=== PATIENT | female | born 1960 | race Caucasian/White ===

== ENCOUNTER 2016-09-12 15:57 | Inpatient (IN) | payer MEDICARE, MEDICAID ==
[~2016-09-12] VITALS: Ht 162.6 cm; Wt 50.3 kg
[~2016-09-12 15:57] MED LIST: ASCO500C6 PO; BACL20TA PO; BUPR150T12 PO; CEPH500T PO; CHOL5000 PO; DIME240C2 PO; FLUC150T48 PO; FLUT16SP NASAL; GABA-502 PO; LEVO500T16 PO; METH20TA35 PO; NAPR550T44 PO; OMEP20CA11 PO; OXYC-465 PO; SENN8.6C6 PO; VENL75TA87 PO; Vitamin A PO; marijuana INHALATION
[2016-09-12 18:14] VITALS: BP 128/61; PULSE 105; RESP 17; O2SAT 94
[2016-09-12] MEDS ORDERED: Alum-Mag Hydrox-Simeth 30 mL Suspension PO PRN (19:50)
[2016-09-12] MEDS ORDERED: Ondansetron 2 mg/mL 2 mL Inj IVPUSH PRN (19:50)
[2016-09-12] MEDS ORDERED: Polyethylene Glycol (PEG) 17 Gm Powder PO PRN (19:50)
--- NOTE | 2016-09-12 19:55 | NUR ---
Transfer to [facility] Pt. transferred to [facility] at 1800 from [facility] via EMS. Report received from [facility] RN. prior to transfer. Pt. appears comfortable and does not appear to be in any pain. Non-verbal, opens eyes with verbal stimulation. Pts. significant other present. notified of pt. arrival. Pt. has suprapubic catheter draining pale urine. New dressing and bag per [facility] RN.
[2016-09-12 20:26] LABS: BASOPHILS % (AUTO) 0.1 % (0-3); EOSINOPHILS % (AUTO) 0 % (0-5); MONOCYTES % (AUTO) 2.7 % (4-12); Mean Corpuscular Hemoglobin 25.3 pg (27.0-35.0); Mean Corpuscular Volume 87.4 fL (81-100); NEUTROPHILS % (AUTO) 94.2 % (40-74); Platelet Count 261 bil/L (150-400)
[2016-09-12] MEDS ORDERED: FERR-83 PO (20:26)
[2016-09-12] MEDS ORDERED: IBUP-1827 PO (20:26)
[2016-09-12] MEDS ORDERED: BACL20TA PO ×2 (20:26)
[2016-09-12] MEDS ORDERED: VENL75TA3 PO ×2 (20:26)
[2016-09-12] MEDS ORDERED: CRAN1TAB5 PO (20:26)
[2016-09-12] MEDS ORDERED: METH20TA33 PO (20:26)
[2016-09-12] MEDS ORDERED: DOCU250C2 PO (20:26)
[2016-09-12] MEDS ORDERED: SENN-133 PO (20:27)
[2016-09-12 20:30] VITALS: BP 124/60; PULSE 123; RESP 18; O2SAT 98
[2016-09-12] MEDS: Vancomycin Dose per Pharmacist XX SCH (20:35)
[2016-09-12] MEDS ORDERED: 0.9% Sodium Chloride 1,000 ML IV ONE (20:35)
--- NOTE | 2016-09-12 20:59 | PCM.HPMED ---
Subjective Date of Service Sep 12, 2016 Primary Provider: Admitting Physician: Ashley Villafana DO Primary Care Physician: Dyan Gifford PA-C Attending Physician: Ashley Villafana DO Chief Complaint: Lethargy UTI Hydronephrosis Renal lithiasis History of Present Illness: Patient is a 56-year-old woman with primary progressive multiple sclerosis, suprapubic catheter, and consistently reoccurring urinary tract infection presented to [facility] after being found to be more lethargic this morning by her caregiver. Caregiver(who is also the boyfriend/DPOAE) is present and is the primary historian. He states that last night she did not complain of any pain, or discomfort, and this morning when she woke up she was not talking and was very weak, and was laying in a puddle of clear fluid, but the insertion point of the suprapubic catheter with its dry and intact. This is consistent with previous urinary tract infections requiring hospitalization and IV antibiotics. Her urologist is Dr. Stinson at [facility] neurology. In the emergency department at [facility] was also noted that she had some pain and firmness in regard to her abdomen. Per [facility] ER report, vitals on presentation 130/62, heart rate 96, respirations 19 temperature 36.6 and satting 98% on room air. White blood cell count 23.6, 93% neutrophils,, hemoglobin 11.6, platelets 359. Manual differential: 2+ anisocytosis, macrocytosis, hypochromasia, giant platelets. Sodium 140, potassium 4.5, chloride 103, bicarbonate 29, BUN 30, creatinine 1.0 , glucose 125, normal bilirubin and liver enzymes. Lactic acid was 1.6. Coagulation studies were normal. CT abdomen and pelvis: Showed mild to moderate hydronephrosis of the right kidney secondary to a distal ureter stone is 44 mm in transverse dimension. ( See diagnostic studies her full impression) Chest x-ray: "Segmental atelectasis in the right lung base." CT head without contrast showed no acute intracranial abnormality. Mild atrophic changes were noted Urine was sent for culture, urinalysis yellow, specific gravity 1.02, pH 8.5, leukocyte esterase 3+, nitrite positive, 2+ protein, 2+ blood, negative ketones , negative glucose, over 100 white blood cells per high-power field, 6-9 red blood cells, 4+ bacteria seen, few squamous epithelial cells. According to documentation blood cultures were ordered before administration of antibiotics, results pending. Review of Systems: Unable to obtain ROS due to patient's inability to communicate. Caregiver says she was not complaining of any pain prior to this morning. Allergies Coded Allergies: No Known Allergies (Unverified Allergy, Unknown, 09/12/16) Home Medications Baclofen Bupropion Carboxymethylcellulose glycerin Dimethyl fumarate Duloxetine Methylphenidate Nasonex Anaprox Omeprazole Oxycodone acetaminophen 53 25 Prednisolone acetate Deltasone Senokot Flomax Valtrex Effexor PMH Multiple sclerosis, primary progressing type Depression Chronic constipation Chronic low back pain Retinitis Iritis History of choking Allergic rhinitis Surgical History Left shoulder replacement Suprapubic catheter placement Family History Only available from the caregiver, Mother "heart problems" diabetes Father passed of old age, age unknown. Has 3 brothers who have passed, one of them was secondary to fulminant AIDS Social History Occupation: disabled Hx Alcohol Use: Yes ("very little, once a month or less") Hx Substance Use: Yes (marijuana, medical, "as much as she can") Smoking Status: Former Smoker (quit 6 years ago, half pack per day) Living Arrangement: with Family (with her boyfriend, who is also her DPOAE) Exam Vital Signs Vital Sign - Last Date Time Temp Pulse Resp B/P Pulse Ox O2 Delivery O2 Flow Rate FiO2 09/12/16 18:14 37.7 105 17 128/61 94 Room Air Exam General: Laying in bed, mildly uncomfortable, appears tired. Arousable, but unable to speak. HEENT: Normocephalic, atraumatic, poor dentition, mucous membranes dry, Cardiovascular: Tachycardia , no clicks murmurs rubs, peripheral pulses 2/4 equal bilaterally Pulmonary: Clear to auscultation bilaterally, no W/R/R. Abdominal: Patient does not express pain or discomfort with palpation, abdomen feels firm, suprapubic catheter is in place, no erythema, purulence, or urinary leakage is present around insertion site. Bowel sounds present 4, no hepatosplenomegaly appreciated. Extremities: No edema appreciated. No tenderness, asymmetry. Neuro: Neurologically difficult to assess secondary to lethargic state and neurologic disease. MSK: Right arm is hyperflexed with contracture, painful with passive manipulation. Lymphatics: Unable to appreciate cervical or axillary or inguinal lymph nodes. Psych: Patient responds to commands, movements are slow and deliberate. Lab and Diagnostics Labs Please see history of present illness Result Diagram: 09/12/162022 Microbiology Urine and blood cultures taken at [facility], results pending X-Rays, CTs and MRIs CT abdominal pelvis with contrast 09/12/2016 1408 Impression: #1 mild to moderate hydronephrosis of the right kidney secondary to a distal ureter stone 44 mm in transverse dimension and a right trigone stone 10 mm in length and 3-4 mm in dimension. #2 in the right kidney there are numerous for a 5 mm (4-5mm) stones throughout the kidney with nonobstructing. Left kidney is normal in appearance. #3 small right pleural effusion with question of minimal infiltrate at the right lung base. #4 small to moderate sized hiatal hernia. Lobo catheter into the bladder. Dictated by Roberth Anaya M.D. on 09/12 2016 at 2:05 PM. Portable chest x-ray 1 view taken 09/12/2016 11:24 AM Impression Subsegmental atelectasis is present. This is at the right lung base. Lungs are otherwise clear. Dictated by Roberth Anaya M.D. on 09/12/2016 11:[address] without contrast 09/12/2016, 10:53AM Impression There is no acute intracranial abnormality found. Mild atrophic changes are present. dictated by Roberth Anaya M.D. on 09/12/2016 at 10:53 AM Assessment & Plan 56-year-old with multiple sclerosis, suprapubic catheter and recurrent history of UTIs requiring hospitalization and IV antibiotics found to have hydronephrosis, renal lithiasis, elevated white count, elevated heart rate consistent with sepsis secondary to urinary tract infection. #1 acute sepsis, present on admission, evaluation and treatment ongoing. Patient's vital signs show tachycardia, and white count greater than 20,000, urinalysis was consistent with urinary tract infection. Most likely due to suprapubic catheter, and decreased urinary flow secondary to hydronephrosis as mentioned below. Lactic acid 1.6 [facility], increasing to 1.8 on admission. Continue to trend every 4 hours Blood cultures and urine cultures pending at [facility], need to contact for results CBC every morning Pro-calcitonin IV fluids, normal saline, 2 L given, remains tachycardic third liter ordered, with normal saline 100 mL per hour to follow. CBC, LA, Blood Gas, Blood and Urine Cultures, Imaging as appropriate. Based on patient's suprapubic catheter typical UTI suspects, plus Pseudomonas and Staphylococcus need to be covered: Received 2 g of Rocephin in the emergency department, changing to cefepime 2 g every 12 hours, plus vancomycin dosed by pharmacy. Antibiotics day 0 If tachycardia does not resolve, worsens, or blood pressure begins to decrease, we will [facility] status. Nursing suprapubic catheter care. #2 acute hydronephrosis, present on admission, treatment ongoing 44 mm diameter stone was appreciated on CAT scan, this along with multiple other stones most likely cause for hydronephrosis. Sees Dr. Stinson of [facility] neurology, has agreed to see the patient per [facility] documentation. We will continue with outpatient Flomax, IV fluid. Confirm with Dr. Stinson to be seen in patient for stenting/lithotripsy necessity. #3 chronic multiple sclerosis, present on admission, treatment continued Primary progressive subtype, on numerous medications We will continue home medications at this time #4 chronic depression, present on admission, treatment continued Continue home medications: Effexor, Wellbutrin, Cymbalta. VTE prophylaxis with SCDs GI prophylaxis not indicated Pain management: Continue with outpatient Percocet. Patient's DPOAE/boyfriend/chief client officer states patient is full code, will bring living will in the morning. Pain Evaluation: Adequate Pain Control GI Prophylaxis: Not indicated VTE Prophylaxis: SCDs Resuscitation Status: CPR: Attempt Resuscitation Attending Statement The patient was seen and examined together with house staff on 09/12/2016 and I agree with the history, exam and plan as outlined in the note above. Martin Trujillo DO Sep 12, 2016 20:59 Livier Madrid DO Sep 13, 2016 01:45
[2016-09-12 21:12] VITALS: PULSE 124
[2016-09-12] MEDS ORDERED: METHYLPHENIDATE 20 MG PO PRN (21:30)
[2016-09-12] MEDS: buPROPion SR 150 mg ER12 Tablet PO SCH (21:30)
[2016-09-12] MEDS ORDERED: oxyCODONE-Acetamin 5-325 mg Tablet PO PRN (21:55)
[2016-09-12] MEDS ORDERED: Vancomycin Inj 1,000 MG in IV Premix 1 EACH IV ONE (22:00)
[2016-09-12 22:30] VITALS: BP 113/71; PULSE 125; RESP 18; O2SAT 96
[2016-09-12] MEDS: 0.9% Sodium Chloride 1,000 ML IV SCH (23:10)
[2016-09-12] MEDS ORDERED: Acetaminophen IV 1,000 MG in IV Premix 1 EACH IV PRN (23:35)
--- NOTE | 2016-09-12 23:50 | PCM.CONPHA ---
Subjective Date of Service: Sep 12, 2016 Requesting Provider: Martin Trujillo DO Lethargy UTI Hydronephrosis Renal lithiasis Reason for Pharmacy Consult: Vancomycin Dosing Objective Vital Signs Date Time Temp Pulse Resp B/P Pulse Ox O2 Delivery O2 Flow Rate FiO2 09/12/16 22:30 38.8 125 18 113/71 96 Room Air 09/12/16 21:12 124 09/12/16 20:30 36.3 123 18 124/60 98 Room Air 09/12/16 18:14 37.7 105 17 128/61 94 Room Air Test 09/12/16 20:23 09/12/16 20:25 White Blood Count 21.6th/mm3 (3.8-10.1) Red Blood Count 4.27mil/mm3 (3.90-5.20) Hemoglobin 10.8g/dL (12.0-15.6) Hematocrit 37.3% (35.0-46.0) Mean Corpuscular Volume 87.4fL (81-100) Mean Corpuscular Hemoglobin 25.3pg (27.0-35.0) Mean Corpuscular Hemoglobin Concent 29.0% (32.0-37.0) Red Cell Distribution Width % (12.3-15.4) Platelet Count 261bil/L (150-400) Neutrophils (%) (Auto) 94.2% (40-74) Lymphocytes (%) (Auto) 2.4% (14-46) Monocytes (%) (Auto) 2.7% (4-12) Eosinophils (%) (Auto) 0% (0-5) Basophils (%) (Auto) 0.1% (0-3) Sodium Level 138mEq/L (134-144) Potassium Level 4.2mEq/L (3.5-5.2) Chloride Level 102mEq/L (97-108) Carbon Dioxide Level 20mmol/L (18-29) Blood Urea Nitrogen 23mg/dL (6-24) Creatinine 0.87mg/dL (0.57-1.00) Estimat Glomerular Filtration Rate 96mL/min (>59) Glucose Level 111mg/dL (60-99) Lactic Acid Level 1.8mmol/L (0.4-2.0) Calcium Level 9.5mg/dL (8.5-10.1) Total Bilirubin 0.3mg/dL (0.0-1.2) Aspartate Amino Transf (AST/SGOT) 17U/L (0-50) Alanine Aminotransferase (ALT/SGPT) 19U/L (0-32) Alkaline Phosphatase 78U/L (25-150) Total Protein 7.2g/dL (6.4-8.4) Albumin 3.5g/dL (3.4-5.0) Procalcitonin 0.95ng/mL (0.00-0.08) Assessment/Plan Assessment/Plan A: * Vancomycin dosing by pharmacy for 56 y/o woman with UTI, sepsis * She is also being started on cefepime * Estimated CrCl is 58 mL/min (Cockcroft & Gault) * Estimated vancomycin half-life is 13 hours and estimated Vd is 36.5 liters P: * Giving a vancomycin 1000 mg IV loading dose * Continue with vancomycin 500 mg IV every 12 hours * Target vancomycin trough range of 15 - 20 mcg/mL * Drawing a trough level prior to the fourth dose Thank you. Pharmacy will continue to follow this patient. Yue Monroy, PharmD Yue Monroy Sep 12, 2016 23:49
[2016-09-13] VITALS (8 sets, daily range): BP systolic 106–162; BP diastolic 65–84; PULSE 84–125; RESP 16–21; O2SAT 94–98
--- NOTE | 2016-09-13 01:10 | NUR ---
transfer to [facility] status: received report from esthela RN, pt. has sepsis from pyleonephritis, suprapubic catheter, pt. has MS, contractures in hands, bedrest, currently nonverbal, has dysphagia currently npo until am swallow eval. pt. is febrile temp 101, tachy heart rate 120's w/ resp rate in the 20's. bp 120's/70's. pt. received NS bolus, now running at 100ml per hour, pt. receiving iv tylenol and iv abx.
[2016-09-13] MEDS: Cefepime Inj 2,000 MG in Dextrose 5% Minibag Plus 100 ML IV SCH ×3 (01:24→20:23)
--- NOTE | 2016-09-13 04:44 | NUR ---
Activity/Care Patient is non-verbal with advanced MS. Patient cannot state pain or needs. Patient tachy with fever. NS bolus administered along with Vancomycin and IV Tylenol. VS taken q2 hours x3 and then q4. Patient turned q2 hours. Dr. Trujillo and Dr. Madrid aware of patients VS. Soft call light given to patient. Care continues.
--- NOTE | 2016-09-13 05:48 | NUR ---
sepsis prog note: pt. much improved, lactic acid now 0.7, vitals stable, 106/65, p-84, sats 97%, temp 98.3, pt. still very sleepy and nonverbal.
[2016-09-13 08:04] LABS: BASOPHILS % (AUTO) 0.3 % (0-3); EOSINOPHILS % (AUTO) 0.1 % (0-5); MONOCYTES % (AUTO) 7.6 % (4-12); Mean Corpuscular Hemoglobin 25.3 pg (27.0-35.0); Mean Corpuscular Volume 85.8 fL (81-100); Platelet Count 253 bil/L (150-400)
[2016-09-13] MEDS: Vancomycin Dose per Pharmacist XX SCH (08:30)
--- NOTE | 2016-09-13 09:27 | NUR ---
received TC from Lexi Wilder, [phone] pt's [facility]. Per Lexi pt has been declining a bit at home, SO/Caregiver is a burned out. They have been talking about some respite options. At this time pt likely will meet criteria for SNF, per Lexi pt's preference is [facility]. Faxed H&P to Lexi. Advised [employer]OVER.
[2016-09-13] MEDS: Vancomycin Inj 500 MG in 0.9% Sodium Chloride 100 ML IV SCH ×2 (10:23→23:47)
--- NOTE | 2016-09-13 10:50 | NUR ---
Evaluation completed. Please go to "Notes" then click on "Assessments and Notes" (bottom left corner of screen). Then select appropriate discipline tab on top of screen.
[2016-09-13] MEDS: Pantoprazole 20 mg ER24 Tablet PO SCH (11:20)
--- NOTE | 2016-09-13 13:57 | NUR ---
Social Work Note - initial assessment Lupe Hough is a 56 yr old with progressive MS - Admitted for pyelonephritis. EMR reviewed: Pt has Medicare and [facility]. Her PCP is Dyan Gifford PA-C. Pt has no tank terminal gauger insurance, no VA benefits. Pt's DPOA is her Significant other Pat - paperwork in EMR. See attached CM initial assessment. PROCUREMENT SERVICES MANAGER met with pt - pt is awake, stating that she wants to go home when stable. She gave SW permission to talk with Pat her Significant other. PROCUREMENT SERVICES MANAGER called Pat who states that he lives with pt. He also has caregivers through [employer] that come for 56 hours per week to help with her care. She is bedbound at baseline, they have equipment: Adjustable bed, wheelchair, commode, shower bench and a sukhjinder lift. He denies any other DME needed. They have a ramp for entrance into the home. Pt is open with [facility] for Nursing and catheter care. Pt and DPOA would like Mehreen to continue at d/c. PROCUREMENT SERVICES MANAGER explored request from Lexi Paz from [facility] this morning for pt to go to SNF for rehab before coming home. DPOA states that he has changed his mind and wants pt to return to their home at d/c. He states that he misses her already and wants to continue caring for her. She would want this as well. Plan: Home with family and resume Mehreen WHITE RN. TOMI Finnegan Addendum: 09/13/16 at 1402 by AGAPITO DONOHUE SS Amended: Links added.
[2016-09-13] MEDS: 0.9% Sodium Chloride 1,000 ML IV SCH ×3 (14:03→23:47)
--- NOTE | 2016-09-13 15:00 | NUR ---
spiritual care:pt request brief conversational visit, prayer. pt expressed her eagerness for discharge, no specific spiritual care needs identified. Pt welcomed prayer. Dtr at bedside.
[2016-09-13] MEDS: buPROPion SR 150 mg ER12 Tablet PO SCH ×2 (15:20→20:21)
--- NOTE | 2016-09-13 17:30 | PCM.PNMED ---
Subjective Date of Service Sep 13, 2016 Subjective Patient was seen and examined at bedside today. Patient denies any chest pain, shortness of breath, nausea, vomiting, diarrhea. Exam Vital Signs Vital Sign - Last Date Time Temp Pulse Resp B/P Pulse Ox O2 Delivery O2 Flow Rate FiO2 09/13/16 12:41 98 09/13/16 09:42 36.8 18 122/69 97 Room Air Intake and Output 09/12/16 09/12/16 09/13/16 Cumulative From/Thru 15:00 23:00 07:00 09/12/16 21:52 - 09/13/16 06:38 Intake Total 3996 ml 3996 ml Output Total 650 ml 650 ml Balance 3346 ml 3346 ml Intake Oral 0 ml 0 ml IV Total 3996 ml 3996 ml Output Urine Total 650 ml 650 ml Exam Physical Exam: GEN: Patient was awake, alert, responding appropriately to questions HEENT: PERRLA, EOMI, Neck soft supple, trachea midline, nomocephalic/atraumatic CV: +S1/S2, RRR, no murmur auscultated Respiratory: CTAB, no wheezes, rales, rhonchi GI: +bowel sounds x4, soft, compressible, non TTP EXT: no c/c/e Skin: Clammy Musculoskeletal: Extremities were contracted bilaterally upper and lower patient has minimal use/feeling in all extremities Psych: mood and affect were appropriate IVs and Medications Medications Reviewed: Medications were reviewed in detail Lab and Diagnostics Result Diagram: 09/13/16 0652 09/13/16 0652 Microbiology Urine and blood cultures taken at [facility], results pending X-Rays, CTs and MRIs CT abdominal pelvis with contrast 09/12/2016 1408 Impression: #1 mild to moderate hydronephrosis of the right kidney secondary to a distal ureter stone 44 mm in transverse dimension and a right trigone stone 10 mm in length and 3-4 mm in dimension. #2 in the right kidney there are numerous for a 5 mm (4-5mm) stones throughout the kidney with nonobstructing. Left kidney is normal in appearance. #3 small right pleural effusion with question of minimal infiltrate at the right lung base. #4 small to moderate sized hiatal hernia. Lobo catheter into the bladder. Dictated by Roberth Anaya M.D. on 09/12 2016 at 2:05 PM. Portable chest x-ray 1 view taken 09/12/2016 11:24 AM Impression Subsegmental atelectasis is present. This is at the right lung base. Lungs are otherwise clear. Dictated by Roberth Anaya M.D. on 09/12/2016 11:[address] without contrast 09/12/2016, 10:53AM Impression There is no acute intracranial abnormality found. Mild atrophic changes are present. dictated by Roberth Anaya M.D. on 09/12/2016 at 10:53 AM Assessment & Plan 56-year-old with multiple sclerosis, suprapubic catheter and recurrent history of UTIs requiring hospitalization and IV antibiotics found to have hydronephrosis, renal lithiasis, elevated white count, elevated heart rate consistent with sepsis secondary to urinary tract infection. #1 acute sepsis, present on admission, evaluation and treatment ongoing. Patient's vital signs show tachycardia, and white count greater than 20,000, urinalysis was consistent with urinary tract infection. Most likely due to suprapubic catheter, and decreased urinary flow secondary to hydronephrosis as mentioned below. -Blood cell count improving 21.6 yesterday today 19.2 -Lactic acid decreased from 1.6-0.6 -Continue IV cefepime 2 g every 12+ IV vancomycin -Tachycardia improving patient will maintain PCC status at this time -Suprapubic catheter care via nursing -Continue IV fluids -Urology has been consulted (Dr. Lee) -Blood cultures and urine cultures pending at [facility] contact for results #2 acute hydronephrosis, present on admission, treatment ongoing -44 mm diameter stone was appreciated on CAT scan, this along with multiple other stones most likely cause for hydronephrosis. -Continue with outpatient Flomax, IV fluid. -Nursing has spoke with nursing staff for Dr. Lee to be seen in patient for stenting/lithotripsy necessity. #3 chronic multiple sclerosis, present on admission, treatment continued -Primary progressive subtype, on numerous medications -We will continue home medications at this time #4 chronic depression, present on admission, treatment continued -Continue home medications: Effexor, Wellbutrin, Cymbalta. #5 functional quadriplegia -Chronic at baseline VTE prophylaxis with SCDs GI prophylaxis not indicated Pain management: Continue with outpatient Percocet. Patient's DPOAE/boyfriend/shape hand states patient is full code, will bring living will in the morning. Disposition: Patient is responding to antibiotic therapy however we will follow recommendations from urology. Patient may need a lithotripsy/stent in order to resolve this particular infection. GI Prophylaxis: Not indicated VTE Prophylaxis: SCDs VTE Mechanical Devices: Intermittant Pneumatic CD Resuscitation Status: CPR: Attempt Resuscitation Time spent Greater than 35 minutes Ashley Villafana DO Sep 13, 2016 17:30
--- NOTE | 2016-09-13 19:38 | NUR ---
Afebrile/mentation/po intake Patient with no fever today. Patient has been alert,denies pain when asked . Patient wanting to go home. Patient had swallow eval done today and diet change. patient ate well for lunch and dinner. Dr Lee to take patient to surgery tomorrow .
--- NOTE | 2016-09-13 20:08 | CONS ---
[address] [address] CONSULTATION REPORT PATIENT: MARTHA RAMIREZ : 1960 MR#: [id number] ADMIT: 09/12/2016 JOB ID: [id number] CORRECTED REPORT: CHIEF COMPLAINT: 1. Urinary tract calculi. 2. Urinary tract infection/sepsis. 3. Neurogenic bladder. 4. Primary progressive subtype multiple sclerosis. 5. Indwelling suprapubic catheter. HISTORY OF PRESENT ILLNESS: The patient is a pleasant and unfortunate 56-year-old white female known by me in the past with indwelling suprapubic catheter for management of neurogenic bladder. She has a history of recurrent UTI. I have not seen her in some time and she has had her catheter exchanges done at home monthly. I was contacted by Dr. Eddie Parker at [facility] emergency department last evening. His plan was to contact the hospitalist service at [facility] and arrange for transfer with subsequent plan for urology consultation with me for definitive evaluation and management of her urinary tract and associated obstruction. However, I was not contacted and learned of the patients admission in the late afternoon this day. A CT KUB on September 12, 2016 demonstrates an obstructing 44 x 100 mm right distal ureteral calculus. There were numerous 5+ mm calculi in the right renal collecting system that are nonobstructing. The left kidney and ureter appear normal. The appropriate cultures have been obtained and she is now on cefepime and vancomycin. She has had clinical and laboratory improvement since her admission. ALLERGIES: No known medication allergies. HOME MEDICATIONS: Include ferrous sulfate 325 mg t.i.d., baclofen 20 mg p.o. daily, Wellbutrin 150 mg p.o. b.i.d., docusate sodium 250 mg p.o. b.i.d., cholecalciferol 5000 units p.o. daily, Protonix 20 mg p.o. daily, senna 8.6 mg t.i.d., baclofen 40 mg p.o. daily, Effexor 150 mg p.o. daily and 175 mg p.o. at h.s., methylphenidate 20 mg p.o. t.i.d., polyethylene glycol 17 g p.r.n. constipation. PAST MEDICAL HISTORY: Primary progressive subtype multiple sclerosis, depression, chronic constipation, retinitis, iritis, and rhinitis. PAST SURGICAL HISTORY: 1. Placement of suprapubic catheter. 2. Left shoulder. SOCIAL HISTORY: Disabled. Little to no alcohol intake. She apparently consumes medical marijuana. She is a past cigarette smoker. Quit six years ago. She lives independently with the care of her boyfriend who is the designated power of commercial litigation attorney and executor. PHYSICAL EXAMINATION: She is resting comfortably in bed and with some appearance of contracture. Head and neck exam unremarkable. Chest equal and clear bilaterally. No rhonchi or rales. Heart rate 100, otherwise normal. The abdomen is protuberant, soft. Suprapubic tube is intact, draining aaliyah to clear urine. DATABASE: Admission white blood cell count 21.6 with a left shift of 94.2% neutrophils. WBC 314 early in the a.m. September 13, 2016. White blood cell count has dropped to 19.2 and a left shift down to 85% neutrophils. Creatinine is normal at 0.82 with an estimated GFR of 103. Cultures are pending. IMPRESSION: 1. Urinary tract infection/urosepsis. 2. Obstructing 44 x 100 mm right distal ureteral calculus. 3. Multiple right renal calculi. 4. Indwelling suprapubic catheter for management of neurogenic bladder. PLAN: 1. Await final culture and sensitivities. In the meantime continue current antibiotic regimen as she is responding clinically and on laboratory criteria. 2. Discussion, informed consent, and scheduling as add-on for cystoscopy, right stent placement, possible ureteroscopic laser lithotripsy. Corrected by GS 10/05/16 at 11:53am Report type.
[2016-09-14] VITALS (10 sets, daily range): BP systolic 122–153; BP diastolic 56–85; PULSE 67–84; RESP 14–18; O2SAT 95–100
[2016-09-14] MEDS ORDERED: Lactated Ringer's 1,000 ML IV SCH ×2 (05:00→17:26)
[2016-09-14] MEDS: Vancomycin Dose per Pharmacist XX SCH (08:30)
[2016-09-14] MEDS: buPROPion SR 150 mg ER12 Tablet PO SCH ×2 (08:30→20:15)
[2016-09-14] MEDS: Cefepime Inj 2,000 MG in Dextrose 5% Minibag Plus 100 ML IV SCH ×2 (08:46→20:14)
--- NOTE | 2016-09-14 09:10 | NUR ---
JYOTSNA: Patient unable to receive JYOTSNA, asked RUBY ENGINEER to follow up with POA. POA signed on admit also.
[2016-09-14 09:25] LABS: BASOPHILS % (AUTO) 0.1 % (0-3); EOSINOPHILS % (AUTO) 1.8 % (0-5); MONOCYTES % (AUTO) 9.1 % (4-12); Mean Corpuscular Volume 85.8 fL (81-100); NEUTROPHILS % (AUTO) 78.8 % (40-74); Platelet Count 269 bil/L (150-400)
--- NOTE | 2016-09-14 09:25 | NUR ---
JYOTSNA signed Verbal permission to sign by pt's POA on phone. KAYLIN Currie
[2016-09-14] MEDS ORDERED: Vancomycin Serum Trough XX ONE (09:30)
[2016-09-14] MEDS ORDERED: Phenylephrine/NS 100 mCg/mL 10 mL Syringe IVPUSH ONE (10:01)
[2016-09-14] MEDS ORDERED: Remifentanil 1 mg/3 mL Inj ONE (10:01)
[2016-09-14] MEDS ORDERED: Propofol 10,000 mCg/mL 20 mL Inj ONE (10:01)
[2016-09-14] MEDS ORDERED: Lidocaine PF 1% 30 mL Inj ONE (10:01)
[2016-09-14] MEDS ORDERED: EPHEDrine/NS 5 mg/mL 5 mL Syringe ONE (10:01)
[2016-09-14] MEDS ORDERED: Vasopressin 20 Unit/mL Inj ONE (10:01)
[2016-09-14] MEDS: Pantoprazole 20 mg ER24 Tablet PO SCH (10:54)
--- NOTE | 2016-09-14 11:32 | NUR ---
Social Work: Continued d/c planning Data: Pt is on day 2 of hospitalization. EMR reviewed, pt discussed in rounds. states pt d/c depends heavily upon urology, but she will likely remain in hospital for at least 2 more days. FORGE PRESS OPERATOR spoke with pt's significant other who states he is planning on taking pt home with [facility]. Access given. FORGE PRESS OPERATOR requested UR specialist fax clinicals to pt's [facility] manager case management, Lexi Paz. Pt's significant other states that he and the [facility] caregiver are possibly interested in a hospital bed for pt, FORGE PRESS OPERATOR ensured they ahve FORGE PRESS OPERATOR's phone number and stated that likely this will not be covered by insurance but to call back when they have decided to move forward with a hospital bed or not. FORGE PRESS OPERATOR will continue to follow. Assessment: Pt who is independent at baseline. Plan: Pt will d/c home via POV when medically stable with resume HH with [facility] and [facility] caregiving. FORGE PRESS OPERATOR will continue to follow. KAYLIN Currie
[2016-09-14] MEDS ORDERED: Potassium Chloride 20 mEq SR Tablet PO ONE (11:50)
[2016-09-14] MEDS ORDERED: KCl 40 mEq/100 mL (CENTRAL) 40 MEQ in IV Premix 1 EACH IV ONE (11:50)
[2016-09-14] MEDS ORDERED: KCl 40 mEq/D5W 500 mL 40 MEQ in IV Premix 1 EACH IV ONE (12:05)
--- NOTE | 2016-09-14 15:56 | PCM.PHAPRO ---
Progress Vancomycin Management: -pt is receiving Vancomycin 500mg iv [id number] for urosepsis -concurrent antibiotics include Cefepime 2gm iv q12 -remain function has remained stable, serum creatinine 0.39 -procalcitonin has decreased to 0.47 (from 0.95 on 09/12) -wbc has improved/decreased to 7.6, pt is afebrile -trough level has returned as 7.9 -Plan: will increase dose today to Vancomycin 1gm iv [id number] for desired trough level of 15-20 serum creatinine has been ordered for the am of 09/16. trough level is scheduled for 0030 on 09/16 Tisha Rosales [facility] Sep 14, 2016 15:56
[2016-09-14] MEDS ORDERED: Lactated Ringer's 1,000 ML IV ONE (16:53)
--- NOTE | 2016-09-14 16:56 | PCM.PNMED ---
Subjective Date of Service Sep 14, 2016 Subjective Patient was seen and examined at bedside today. Patient denies any chest pain, shortness of breath, nausea, vomiting, diarrhea. Exam Vital Signs Vital Sign - Last Date Time Temp Pulse Resp B/P Pulse Ox O2 Delivery O2 Flow Rate FiO2 09/14/16 16:02 36.3 69 16 142/81 98 Room Air Intake and Output 09/13/16 09/13/16 09/14/16 Cumulative From/Thru 15:00 23:00 07:00 09/12/16 21:52 - 09/14/16 06:19 Intake Total 240 ml 2236 ml 6472 ml Output Total 1000 ml 2300 ml 3950 ml Balance -760 ml -64 ml 2522 ml Intake Oral 240 ml 0 ml 240 ml IV Total 2236 ml 6232 ml Output Urine Total 1000 ml 2300 ml 3950 ml # Bowel Movements 0 0 Exam Physical Exam: GEN: Patient was awake, alert, responding appropriately to questions HEENT: PERRLA, EOMI, Neck soft supple, trachea midline, nomocephalic/atraumatic CV: +S1/S2, RRR, no murmur auscultated Respiratory: CTAB, no wheezes, rales, rhonchi GI: +bowel sounds x4, soft, compressible, non TTP EXT: no c/c/e Skin: Clammy Musculoskeletal: Bilateral upper and lower extremity contractures Psych: mood and affect were appropriate IVs and Medications Medications Reviewed: Medications were reviewed in detail Lab and Diagnostics Result Diagram: 09/14/16 0920 09/14/16 0920 Microbiology Urine and blood cultures taken at [facility], results pending X-Rays, CTs and MRIs CT abdominal pelvis with contrast 09/12/2016 1408 Impression: #1 mild to moderate hydronephrosis of the right kidney secondary to a distal ureter stone 44 mm in transverse dimension and a right trigone stone 10 mm in length and 3-4 mm in dimension. #2 in the right kidney there are numerous for a 5 mm (4-5mm) stones throughout the kidney with nonobstructing. Left kidney is normal in appearance. #3 small right pleural effusion with question of minimal infiltrate at the right lung base. #4 small to moderate sized hiatal hernia. Lobo catheter into the bladder. Dictated by Roberth Anaya M.D. on 09/12 2016 at 2:05 PM. Portable chest x-ray 1 view taken 09/12/2016 11:24 AM Impression Subsegmental atelectasis is present. This is at the right lung base. Lungs are otherwise clear. Dictated by Roberth Anaya M.D. on 09/12/2016 11:[address] without contrast 09/12/2016, 10:53AM Impression There is no acute intracranial abnormality found. Mild atrophic changes are present. dictated by Roberth Anaya M.D. on 09/12/2016 at 10:53 AM Assessment & Plan 56-year-old with multiple sclerosis, suprapubic catheter and recurrent history of UTIs requiring hospitalization and IV antibiotics found to have hydronephrosis, renal lithiasis, elevated white count, elevated heart rate consistent with sepsis secondary to urinary tract infection. Acute sepsis, present on admission, evaluation and treatment ongoing. Patient's vital signs show tachycardia, and white count greater than 20,000, urinalysis was consistent with urinary tract infection. Most likely due to suprapubic catheter, and decreased urinary flow secondary to hydronephrosis as mentioned below. -Blood cell count improving 19.2 yesterday today 7.6 -Lactic acid decreased from 1.6-0.6 -Continue IV cefepime 2 g every 12+ IV vancomycin -Tachycardia improving patient will maintain PCC status at this time -Suprapubic catheter care via nursing -Continue IV fluids -Urology has been consulted (Dr. Lee) -Blood cultures and urine cultures pending at [facility] contact for results -Procalcitonin improving yesterday 0.95 today's 0.47 Hyponatremia -Potassium is 2.9 -Replete potassium with 40 mEq of potassium IV 1 dose and 40 mEq of potassium by mouth 1 dose - Repeat CMP in the morning Acute hydronephrosis, present on admission, treatment ongoing -44 mm diameter stone was appreciated on CAT scan, this along with multiple other stones most likely cause for hydronephrosis. -Continue with outpatient Flomax, IV fluid. -Nursing has spoke with nursing staff for Dr. Lee to be seen in patient for stenting/lithotripsy necessity. Chronic multiple sclerosis, present on admission, treatment continued -Primary progressive subtype, on numerous medications -We will continue home medications at this time Chronic depression, present on admission, treatment continued -Continue home medications: Effexor, Wellbutrin, Cymbalta. Functional quadriplegia -Chronic at baseline secondary to multiple sclerosis VTE prophylaxis with SCDs GI prophylaxis not indicated Pain management: Continue with outpatient Percocet. Patient's DPOAE/boyfriend/local owner operator truck driver states patient is full code, will bring living will in the morning. Disposition: Patient is responding to antibiotic therapy however we will follow recommendations from urology. Patient may need a lithotripsy/stent in order to resolve this particular infection. GI Prophylaxis: Not indicated VTE Prophylaxis: SCDs VTE Mechanical Devices: Intermittant Pneumatic CD Resuscitation Status: CPR: Attempt Resuscitation Time spent Greater than 35 minutes Ashley Villafana DO Sep 14, 2016 16:56
--- NOTE | 2016-09-14 16:59 | NUR ---
Pre op note- NPO except for meds. Patient denies pain. Turned every 2 hours. SP catheter draining yellow urine. Patient transferred via bed to surgery approx. 1600. Report given to OR nurse.
[2016-09-14] MEDS ORDERED: Lactated Ringer's 500 ML IV PRN (17:26)
--- NOTE | 2016-09-14 17:26 | PCM.HPANE ---
Patient Data Date of Service: Sep 14, 2016 Surgeon Admitting Provider:Livier Madrid DO Attending Provider:Ashley Villafana DO Primary Care Physician:Dyan Gifford PA-C Other Provider: Reason for Visit Pyelonephritis PYELONEPHRITIS Ht/WT & BMI Height (Feet): 5 Height (Inches): 4.00 Weight (Kilograms): 51.500 Body Mass Index 19.63 Allergies Coded Allergies: No Known Allergies (Unverified Allergy, Unknown, 09/12/16) Past Anesthesia History Anesthesia History: Denies:: Anesthesia Reactions, Malignant Hyperthermia Diabetes History Hx Diabetes?: No Current Bedside Blood Glucose: 104 MRSA MRSA: No Medications Hypertension Medication: No Home Meds Incl Beta Nallely: No Reported Medications Sennosides (Senna)8.6 Mg Tablet8.6 Mg PO TID PRN For Constipation 09/12/16 Cranberry Conc/C/Bacill Coag (Cranberry Tablet)1 Each Tablet1 Each PO BID 09/12/16 Ibuprofen 600 Mg Mxxuib390 Mg PO DAILY PRN For Pain Ref 0 09/12/16 Venlafaxine 75 Mg Hacdih04 Mg PO HS Ref 0 09/12/16 Venlafaxine 75 Mg Xlsxcw441 Mg PO QAM #90 09/12/16 Methylphenidate 20 Mg Vbxlrj40 Mg PO TID PRN prn #90 09/12/16 Ferrous Sulfate 325 Mg Glarjw447 Mg PO TID #90 09/12/16 Docusate Sodium 250 Mg Hkrsgzv317 Mg PO BID Ref 0 09/12/16 Baclofen 20 Mg Ljgbsy62 Mg PO HS Ref 0 09/12/16 Baclofen 20 Mg Xluvlu50 Mg PO DAILYWL Ref 0 09/12/16 Cholecalciferol (Vitamin D3) (Vitamin D3)5,000 Unit Capsule5,000 Units PO DAILY #90 08/18/15 oxyCODONE-Acetaminophen 7.5-325 mg 1 Each Tablet1 Tab PO q4-6hours PRN For Pain Ref 0 08/18/15 Omeprazole 20 Mg Capsule.dr20 Mg PO DAILY #15 08/18/15 Bupropion ER 150 Mg Tablet.er150 Mg PO BID #30 08/18/15 [marijuana] No Conflict CheckUnknown Dose INHALATION DAILY PRN For Pain 08/18/15 Baclofen 20 Mg Xgqkcq35 Mg PO QAM 30 Days Ref 0 01/13/14 Discontinued Reported Medications Ascorbic Acid (Vitamin C)500 Mg Capsule.er500 Mg PO DAILY 08/18/15 [Vitamin A] No Conflict CheckUnknown Dose PO DAILY 08/18/15 Venlafaxine ER 75 Mg Tab.er.66264 Mg PO DAILY #45 08/18/15 Dimethyl Fumarate (Tecfidera)240 Mg Hudorbb479 Mg PO BID #60 08/18/15 Sennosides (Senna)8.6 Mg Capsule8.6 Mg PO TID PRN For Constipation 08/18/15 oxyCODONE-Acetaminophen 7.5-325 mg 1 Each Tablet1 Tab PO q6 hours PRN For Pain # 180 08/18/15 Fluticasone Propionate (Fluticasone Propionate Nasal)16 Gm [place].susp2 Sprays NASAL DAILY PRN nasal congestion #16 08/18/15 Naproxen Sodium 550 Mg Spr805 Mg PO BID PRN For Pain #15 08/18/15 Gabapentin 300 Mg Xpadeyk331 Mg PO TID #45 08/18/15 Methylphenidate ER 20 Mg Wqqnap28 Mg PO DAILY #90 08/18/15 Discontinued Scripts Fluconazole (Diflucan)150 Mg Vgkfxr748 Mg PO WEEKLY #2 TABLET Ref 0 Prov:Bam Melendez MD 04/18/16 Cephalexin 500 Mg Diforj345 Mg PO TID #30 TABLET Ref 0 Prov:Bam Melendez MD 04/18/16 Levofloxacin (Levaquin)500 Mg Bmiphr426 Mg PO DAILY 5 Days Prov:Dom Ventura MD 08/19/15 History History of ENT Problems?: No HEENT History: Positive for:: Cataracts Hx of Heart Problems?: No Cardiovascular History: Positive for:: Hypertension Denies:: Congestive Heart Failure Hx of Respiratory Problem?: No Respiratory History: Denies:: Tuberculosis Use of C-PAP Machine Hx Neurologic Problems?: No Neurological History: Positive for:: Multiple Sclerosis (DIFFICULTY AMBULATING -USES WHEELCHAIR & IS WT BEARING ON UPPER EXTREMITIES) Hx of GI Problems?: Yes Gastrointestinal History: Positive for:: Gastroesphageal Reflux Heartburn Hx of Problems?: Yes Genitourinary History: Positive for:: Urinary Tract Infection Female Hx: Denies:: Currently Endometriosis Pelvic Inflammatory Problems with Breasts? Skin History: Denies:: History Skin Disorders? Pressure Ulcers Hx Musculoskeletal Problems?: Yes Musculoskeletal History: Positive for:: Back Injury (Chronic back pain / neck pain) Degenerative Joint Hx of Psycho/Social Problems?: Yes Psycho Social History: Denies:: Hx Depression (denies) Hx Surgeries?: Yes (TONSILLECTOMY) Hx Any Other Health Problems?: Yes Other History: Denies:: Cancer Endocrine Disease (C/OF NIGHT SWEATS & HEAT INTOLERANCE (HOT FLASHES)) Hospitalization Thyroid Disease History Blood Transfusions: Positive for:: Accept Blood Products? Denies:: Blood Transfuse Reaction Blood Transfusions Hx Diabetes: NoBedside Blood Glucose: 104 Occupation: disabled Hx Alcohol Use: Yes ("very little, once a month or less")Hx Substance Use: Yes (marijuana, medical, "as much as she can") Smoking Status: Former Smoker (quit 6 years ago, half pack per day) Have You Smoked inLast 12 mo: No Stop/Bang Treated for Sleep Apnea?: No Do You Have a CPAP Machine?: No S-Snoring: Do You Snore Loudly: Yes T-Tired: feel tired, fatigued: Yes O-Obsered: Observed not breath: No P-Blood Pressure: treated: No B- Body Mass Index > 35 kg/m2: No A- Age over 50: Yes N- Neck Large Circumference: No G- Gender Male: No ZAYRA Total Score: 2 ZAYRA Risk Assessment: Low Risk, <3 Yes Risk Assessment Category Category 1A: Patient has history of documented sleep apnea, and HAS NOT received any narcotic, sedative or anesthesia administration during this stay. Category 1B: Patient has history of documented sleep apnea, and HAS received any narcotic , sedative or anesthesia administration during this stay Category 2: Patient has SUSPECTED Obstructive Sleep Apnea, and HAS received any narcotic , sedative or anesthesia administration during this stay. Category 3: Patient has SUSPECTED Obstructive Sleep Apnea and HAS NOT received narcotic, sedative or anesthesia administration during this stay. Category 4: Outpatient in Procedural Areas with known sleep apnea or who screen positive for High Risk via the STOP/BANG questionnaire. Exam Exam Vital Signs Vital Signs Date Time Temp Pulse Resp B/P Pulse Ox O2 Delivery O2 Flow Rate FiO2 09/14/16 16:02 36.3 69 16 142/81 98 Room Air 09/14/16 11:37 36.7 80 16 137/78 97 Room Air 09/14/16 11:05 69 General Appearance: Alert, Cooperative HEENT/AIRWAY: MP 2, Mouth Opening (OK) Lungs: Clear to Auscultation, Normal Air Movement Heart: Regular Rate/Rhythm, Normal S1 Additional Information Complete body contractions, confined to bed Meds/Labs/Diagnostics Admission Meds Current Medications Baclofen (Lioresal) 40 mg HS PO Last administered on 09/13/16 20:22; Start at 21:00 Venlafaxine HCl (Effexor) 75 mg HS PO Last administered on 09/13/16 20:19; Start 09/13/16 at 21:00 Miscellaneous Vancomycin Trough Per Pharmacy ONCE ONCE XX Last administered on 09/14/16 09:30; Start 09/14/16 at 09:30; Stop 09/14/16 at 09:31; Status DC Lactated Ringer's (Lr) 1,000 ml @ 120 mls/hr Q8H20M IV Last administered on 04:33; Start 09/14/16 at 05:00; Stop 09/14/16 at 13:19; Status DC Potassium Chloride 40 meq 40 meq ONCE ONCE PO Last administered on 09/14/16 15:28; Start 09/14/16 at 11:50; Stop 09/14/16 at 12:00; Status DC Potassium Chloride In D5W/ Premix (Potassium Chloride 40 mEq/ D5W 500 mL/IV Premix) 500 ml @ 125 mls/hr Q4H ONCE IV Last administered on 09/14/16 14:23; Start 09/14/16 at 12:05; Stop 09/14/16 at 16:04; Status DC Bedside Blood Glucose: 104 Labs Test 09/14/16 09:20 White Blood Count 7.6th/mm3 (3.8-10.1) Red Blood Count 3.80mil/mm3 (3.90-5.20) Hemoglobin 9.5g/dL (12.0-15.6) Hematocrit 32.6% (35.0-46.0) Mean Corpuscular Volume 85.8fL (81-100) Mean Corpuscular Hemoglobin 25.0pg (27.0-35.0) Mean Corpuscular Hemoglobin Concent 29.1% (32.0-37.0) Red Cell Distribution Width 28.6% (12.3-15.4) Platelet Count 269bil/L (150-400) Neutrophils (%) (Auto) 78.8% (40-74) Lymphocytes (%) (Auto) 10.1% (14-46) Monocytes (%) (Auto) 9.1% (4-12) Eosinophils (%) (Auto) 1.8% (0-5) Basophils (%) (Auto) 0.1% (0-3) Sodium Level 141mEq/L (134-144) Potassium Level 2.9mEq/L (3.5-5.2) Chloride Level 104mEq/L (97-108) Carbon Dioxide Level 22mmol/L (18-29) Blood Urea Nitrogen 10mg/dL (6-24) Creatinine 0.39mg/dL (0.57-1.00) Estimat Glomerular Filtration Rate 242mL/min (>59) Glucose Level 87mg/dL (60-99) Lactic Acid Level 0.9mmol/L (0.4-2.0) Calcium Level 8.8mg/dL (8.5-10.1) Total Bilirubin 0.2mg/dL (0.0-1.2) Aspartate Amino Transf (AST/SGOT) 11U/L (0-50) Alanine Aminotransferase (ALT/SGPT) 13U/L (0-32) Alkaline Phosphatase 81U/L (25-150) Total Protein 5.9g/dL (6.4-8.4) Albumin 3.3g/dL (3.4-5.0) Procalcitonin 0.47ng/mL (0.00-0.08) Vancomycin Level Trough 7.9mcg/mL Plan Impression Patient chart reviewed, patient interviewed and anesthestic plan with risks, benefits, and alternatives discussed, and informed consent obtained. NPO Status: NOTHING TODAY ASA Physical Status: ASA3 Severe Disease Anesthetic Plan: GA Bene/Risks/Altern/Consents: Yes HP Complete Prior to Induction: Yes Indra Paris MD Sep 14, 2016 16:33
[2016-09-14] MEDS ORDERED: Labetalol 5 mg/mL 4 mL Inj IV PRN (17:30)
[2016-09-14] MEDS ORDERED: HYDROmorphone 1 mg/mL Inj IVPUSH PRN (17:30)
[2016-09-14] MEDS ORDERED: EPHEDrine Sulfate 50 mg/mL Inj IVPUSH PRN (17:30)
[2016-09-14] MEDS ORDERED: MetoCLOpramide 5 mg/mL 2 mL Inj IVPUSH PRN (17:30)
[2016-09-14] MEDS ORDERED: Atropine 0.4 mg/mL Inj IVPUSH PRN (17:30)
[2016-09-14] MEDS ORDERED: fentaNYL-PF 50 mCg/mL 2 mL Inj IVPUSH PRN (17:30)
[2016-09-14] MEDS ORDERED: hydrALAZINE 20 mg/mL Inj IVPUSH PRN (17:30)
[2016-09-14] MEDS ORDERED: Ondansetron 2 mg/mL 2 mL Inj IVPUSH PRN (17:30)
[2016-09-14] MEDS ORDERED: Dexamethasone 4 mg/mL Inj IVPUSH PRN (17:30)
[2016-09-14] MEDS: Vancomycin 1 Gm/200 mL NS Premix IV SCH ×2 (17:30→18:59)
[2016-09-14] MEDS ORDERED: Phenylephrine 10,000 mCg/mL Inj IVPUSH PRN (17:30)
[2016-09-14] MEDS ORDERED: Acetaminophen IV 1,000 MG in IV Premix 1 EACH IV PRN (17:45)
[2016-09-14] MEDS ORDERED: Polyethylene Glycol (PEG) 17 Gm Powder PO PRN (17:45)
--- NOTE | 2016-09-14 18:34 | PCM.ANEP1 ---
Post Anesthesia Phase 1 PACU Phase 1 Assessment Date of Service: Sep 14, 2016 Vital Signs Vital Signs Date Time Temp Pulse Resp B/P Pulse Ox O2 Delivery O2 Flow Rate FiO2 09/14/16 18:16 36.5 77 14 125/57 97 Room Air 09/14/16 18:05 72 15 130/66 97 Room Air 09/14/16 17:57 69 16 135/62 100 Simple Mask 8 09/14/16 17:51 36.1 67 14 146/74 100 Simple Mask 8 09/14/16 16:02 36.3 69 16 142/81 98 Room Air 09/14/16 11:37 36.7 80 16 137/78 97 Room Air 09/14/16 11:05 69 Anesthetic Administered: GA Level of Alertness: Awake, talking MENSAH's with Equal Strength: No (baseline contractures) Pain: No Oxygen Delivery: Simple Mask Lungs: Normal Air Movement Summary Profound drop in BP after induction requiring phenylpehrine, ephedrine, and vasopressin. Remained stable thereafter Indra Paris MD Sep 14, 2016 18:34
--- NOTE | 2016-09-14 18:37 | PCM.ANEP2 ---
Post Anesthesia Evaluation ASA/CMS Post Anesthesia Date of Service: Sep 14, 2016 VS in Patient's Normal Range?: Yes Resp Stable; Airway Patent?: Yes CV Function & Hydration Stable: Yes Mental Status Recovered?: Yes Pain control Satisfactory?: Yes N/V Control Satisfactory?: Yes Indra Paris MD Sep 14, 2016 18:37
[2016-09-14] MEDS: 0.9% Sodium Chloride 1,000 ML IV SCH ×2 (18:55→22:35)
[2016-09-14] MEDS: Lactated Ringer's 1,000 ML IV SCH (18:59)
--- NOTE | 2016-09-14 19:10 | NUR ---
Post op- Patient returned to [facility] via bed. Alert and awake. Denies pain. Supra Pubic catheter draining blood tinged urine. Patient tolerating liquids without complaint of nausea.
--- NOTE | 2016-09-14 21:09 | OP ---
[address] [address] OPERATIVE REPORT PATIENT: MARTHA RAMIREZ : 1960 MR#: [id number] ADMIT: 09/12/2016 JOB ID: [id number] DATE OF SURGERY: 09/14/2016 SURGEON: Guy Lee MD PREOPERATIVE DIAGNOSIS(ES): 1. Urosepsis. 2. Right renal calculi. 3. Obstructing 4.5 x 10 mm right distal ureteral calculus. 4. Neurogenic bladder. POSTOPERATIVE DIAGNOSIS(ES): 1. Urosepsis. 2. Right renal calculi. 3. Obstructing 4.5 x 10 mm right distal ureteral calculus. 4. Neurogenic bladder. OPERATION PERFORMED: 1. Cystoscopy, right ureteral stent placement. 2. Cystolitholapaxy. ANESTHESIOLOGIST: Indra Paris MD ANESTHESIA: General. FINDINGS: Urethra normal. Bladder, severe trabeculation with small capacity, indwelling suprapubic. There is an ovoid calculus lying dependently in the floor of the bladder. Orifices were in normal position bilaterally. PROCEDURE SUMMARY: The patient was positioned in supine and attempted semi lithotomy, but an approximation of such due to contractures of the lower extremities. The perineum and genitalia and vaginal vault were prepped and draped in sterile fashion. The 22-Arabic panendoscope was then passed to the lower urinary tract with the findings as described above. Next, a 0.35 Glidewire was advanced to the right ureteral orifice and advanced into the proximal collecting system under direct and fluoroscopic guidance. Next, a 6-Arabic 22-32 cm variable length stent was advanced over the Chris wire and appropriately positioned in the upper tract. NO RETRIEVAL LINE WAS LEFT ATTACHED. Next, the panendoscope was removed. The 25-Arabic sheath was then inserted and was then fitted with the handheld stone contracting officer and the above-described stone was fragmented into tiny pieces most of which were irrigated clear from the bladder. The bladder was then drained completely. The patient was then repositioned supine, awakened, transferred to the [facility], and transported to recovery in stable condition.
[2016-09-15] VITALS (8 sets, daily range): BP systolic 132–145; BP diastolic 71–82; PULSE 79–119; RESP 16; O2SAT 96–98
[2016-09-15] MEDS: Lactated Ringer's 1,000 ML IV SCH ×3 (01:41→17:09)
--- NOTE | 2016-09-15 03:26 | NUR ---
Urine Urine has remained lite pink in color without any noted clots or obstructions in catheter. Denies pain or discomfort. Currently resting without any complaints.
[2016-09-15] MEDS: Vancomycin 1 Gm/200 mL NS Premix IV SCH ×2 (06:01→18:09)
[2016-09-15] MEDS: Vancomycin Dose per Pharmacist XX SCH (08:30)
[2016-09-15] MEDS: Cefepime Inj 2,000 MG in Dextrose 5% Minibag Plus 100 ML IV SCH ×2 (09:02→20:24)
[2016-09-15] MEDS: Pantoprazole 20 mg ER24 Tablet PO SCH (09:03)
[2016-09-15] MEDS: buPROPion SR 150 mg ER12 Tablet PO SCH ×2 (09:04→20:24)
[2016-09-15 10:09] LABS: Mean Corpuscular Hemoglobin 25.7 pg (27.0-35.0); Mean Corpuscular Volume 85.9 fL (81-100)
[2016-09-15] MEDS: 0.9% Sodium Chloride 1,000 ML IV SCH ×2 (10:42→20:23)
--- NOTE | 2016-09-15 17:25 | PCM.PNMED ---
Subjective Date of Service Sep 15, 2016 Subjective Patient was seen and examined at bedside today. Patient denies any chest pain, shortness of breath, nausea, vomiting, diarrhea. Exam Vital Signs Vital Sign - Last Date Time Temp Pulse Resp B/P Pulse Ox O2 Delivery O2 Flow Rate FiO2 09/15/16 15:23 36.7 81 16 137/72 98 Room Air 09/14/16 17:57 8 Intake and Output 09/14/16 09/14/16 09/15/16 Cumulative From/Thru 15:00 23:00 07:00 09/12/16 21:52 - 09/15/16 06:22 Intake Total 1750 ml 420 ml 8642 ml Output Total 850 ml 2100 ml 6900 ml Balance 900 ml -1680 ml 1742 ml Intake Oral 0 ml 0 ml 240 ml IV Total 1750 ml 420 ml 8402 ml Output Urine Total 850 ml 2100 ml 6900 ml # Bowel Movements 1 1 Exam Physical Exam: GEN: Patient was awake, alert, responding appropriately to questions HEENT: PERRLA, EOMI, Neck soft supple, trachea midline, nomocephalic/atraumatic CV: +S1/S2, RRR, no murmur auscultated Respiratory: CTAB, no wheezes, rales, rhonchi GI: +bowel sounds x4, soft, compressible, non TTP EXT: no c/c/e, bilateral contractures upper and lower extremities Neuro: CN II-XII grossly intact Psych: mood and affect were appropriate IVs and Medications Medications Reviewed: Medications were reviewed in detail Lab and Diagnostics Result Diagram: 09/15/16 0958 09/15/16 0958 Microbiology Urine and blood cultures taken at [facility], results pending X-Rays, CTs and MRIs CT abdominal pelvis with contrast 09/12/2016 1408 Impression: #1 mild to moderate hydronephrosis of the right kidney secondary to a distal ureter stone 44 mm in transverse dimension and a right trigone stone 10 mm in length and 3-4 mm in dimension. #2 in the right kidney there are numerous for a 5 mm (4-5mm) stones throughout the kidney with nonobstructing. Left kidney is normal in appearance. #3 small right pleural effusion with question of minimal infiltrate at the right lung base. #4 small to moderate sized hiatal hernia. Lobo catheter into the bladder. Dictated by Roberth Anaya M.D. on 09/12 2016 at 2:05 PM. Portable chest x-ray 1 view taken 09/12/2016 11:24 AM Impression Subsegmental atelectasis is present. This is at the right lung base. Lungs are otherwise clear. Dictated by Roberth Anaya M.D. on 09/12/2016 11:[address] without contrast 09/12/2016, 10:53AM Impression There is no acute intracranial abnormality found. Mild atrophic changes are present. dictated by Roberth Anaya M.D. on 09/12/2016 at 10:53 AM Assessment & Plan 56-year-old with multiple sclerosis, suprapubic catheter and recurrent history of UTIs requiring hospitalization and IV antibiotics found to have hydronephrosis, renal lithiasis, elevated white count, elevated heart rate consistent with sepsis secondary to urinary tract infection. Acute sepsis, present on admission, evaluation and treatment ongoing. Patient's vital signs show tachycardia, and white count greater than 20,000, urinalysis was consistent with urinary tract infection. Most likely due to suprapubic catheter, and decreased urinary flow secondary to hydronephrosis as mentioned below. -Blood cell count improving 19.2 yesterday today 7.6 -Lactic acid decreased from 1.6-0.6 -Continue IV cefepime 2 g every 12+ IV vancomycin -Tachycardia improving patient will maintain PCC status at this time -Suprapubic catheter care via nursing -Continue IV fluids -Urology has been consulted (Dr. Lee) -Blood cultures and urine cultures pending at [facility] contact for results -Procalcitonin improving yesterday 0.95 today's 0.47 Hyponatremia (resolving) -Potassium is 2.9 yesterday today 3.8 s/p replacement -Replete potassium with 40 mEq of potassium IV 1 dose and 40 mEq of potassium by mouth 1 dose (09/14/16) - Repeat CMP in the morning Acute hydronephrosis, present on admission, treatment ongoing -44 mm diameter stone was appreciated on CAT scan, this along with multiple other stones most likely cause for hydronephrosis. -Continue with outpatient Flomax, IV fluid. -Nursing has spoke with nursing staff for Dr. Lee to be seen in patient for stenting/lithotripsy necessity. Chronic multiple sclerosis, present on admission, treatment continued -Primary progressive subtype, on numerous medications -We will continue home medications at this time Chronic depression, present on admission, treatment continued -Continue home medications: Effexor, Wellbutrin, Cymbalta. Functional quadriplegia -Chronic at baseline secondary to multiple sclerosis VTE prophylaxis with SCDs GI prophylaxis not indicated Pain management: Continue with outpatient Percocet. Patient's DPOAE/boyfriend/operational intelligence analyst states patient is full code, will bring living will in the morning. Disposition: Patient is currently responding well to antibiotic therapy. After the lithotripsy the patient states that she feels much better. The patient may be ready for discharge home tomorrow. We will discuss with urology as patient seems to be medically stable. GI Prophylaxis: Not indicated VTE Prophylaxis: SCDs VTE Mechanical Devices: Intermittant Pneumatic CD Resuscitation Status: CPR: Attempt Resuscitation Time spent 30 minutes Ashley Villafana DO Sep 15, 2016 17:25
--- NOTE | 2016-09-15 18:25 | NUR ---
Activity/urine Bedrest, q 2 hour turns. Family or home caregiver in room all day, assist with 1:1 feed. Urine is clear, yellow. Some sediment.
[2016-09-16 00:04] VITALS: BP 130/73; PULSE 83; RESP 16; O2SAT 96
[2016-09-16] MEDS: Lactated Ringer's 1,000 ML IV SCH ×3 (01:41→17:41)
[2016-09-16] MEDS: 0.9% Sodium Chloride 1,000 ML IV SCH ×2 (04:35→08:21)
[2016-09-16] MEDS ORDERED: Vancomycin Serum Trough XX ONE (05:00)
[2016-09-16 05:09] VITALS: BP 130/74; PULSE 84; RESP 18; O2SAT 97
--- NOTE | 2016-09-16 05:11 | NUR ---
Pain c/o generalized pain x1 this shift. Prn oxycodone administered and effective with no further complaints. Currently resting in bed without any complaints.
[2016-09-16 05:24] LABS: Mean Corpuscular Hemoglobin 24.9 pg (27.0-35.0); Mean Corpuscular Volume 85.6 fL (81-100)
[2016-09-16 05:54] VITALS: PULSE 69
[2016-09-16 06:02] LABS: Vancomycin, Trough 11.6 mcg/mL
[2016-09-16] MEDS ORDERED: Vancomycin Inj 1,250 MG in 0.9% Sodium Chloride 250 ML IV ONE (06:45)
[2016-09-16] MEDS ORDERED: KCl 40 mEq/100 mL (CENTRAL) 40 MEQ in IV Premix 1 EACH IV ONE (07:35)
[2016-09-16] MEDS ORDERED: KCl 40 mEq/D5W 500 mL 40 MEQ in IV Premix 1 EACH IV ONE (07:45)
[2016-09-16 08:00] VITALS: PULSE 82
[2016-09-16] MEDS: Pantoprazole 20 mg ER24 Tablet PO SCH (08:20)
[2016-09-16] MEDS: Vancomycin Dose per Pharmacist XX SCH (08:30)
[2016-09-16] MEDS ORDERED: 0.9% Sodium Chloride 250 ML ONE (09:03)
[2016-09-16] MEDS: buPROPion SR 150 mg ER12 Tablet PO SCH (09:06)
[2016-09-16 10:45] VITALS: BP 130/74; PULSE 99; RESP 16; O2SAT 100
[2016-09-16] MEDS: Cefepime Inj 2,000 MG in Dextrose 5% Minibag Plus 100 ML IV SCH (11:37)
--- NOTE | 2016-09-16 11:58 | PCM.DIMED ---
Discharge Instructions Date of Service Sep 16, 2016 Dates of Hospitalization Sep 12, 2016 at 18:08 Discharge Diagnosis Discharge Diagnosis Acute sepsis Pyelonephritis Hyponatremia Acute hydronephrosis Functional quadriplegia secondary to multiple sclerosis Drug dependence Depression chronic Medication Instructions Please take all of her antibiotic do not see any pills for future use. Diet No restrictions, Other (soft mechanical) Activity No restrictions (gradually return to normal daily activities) Call your provider Shortness of breath, Bleeding, Chest pain Patient Instructions Follow-up Provider: Guy Lee MD Follow-up with PCP in: 1 week (if an appointment has already been made please call to schedule an appointment) Provider: Dyan Gifford PA-C Follow-up in: 2 weeks (if an appointment has already been made please call to schedule an appointment) Ashley Villafana DO Sep 16, 2016 11:57
--- NOTE | 2016-09-16 12:10 | NUR ---
Social Work: Readiness for Discharge Data: EMR reviewed. Pt is on day 4 of hospitalization. Pt is s/p lithotripsy. Pt to discharge home later today. SW contacted SO Diana JIANG regarding pt's discharge plan. SO states he has no concerns regarding discharge and is excited to have pt home again. Pt to resume [facility] at discharge. LANE updated Steve Santos, [facility] liaison [phone], regarding pt's discharge. Steve informed LANE that pt's HH services will resume tomorrow. Pt to discharge home with [facility] and [facility] caregivers, SO to transport via POV. SW will continue to follow. Assessment: Pt who will resume HH and [facility] at discharge. Plan: Pt to discharge home with HH and [facility] caregiving with SO to transport via POV. SW will continue to follow. KAYLIN Bush
--- NOTE | 2016-09-16 12:12 | PCM.DC.MED ---
Discharge Summary Date of Service Sep 16, 2016 Dates of Hospitalization Date of Hospital Admission Sep 12, 2016 at 18:08 Date of Discharge: Sep 16, 2016 Providers: Admitting Physician: Livier Madrid DO Primary Care Physician: Dyan Gifford PA-C Attending Physician: Ashley Villafana DO Diagnosis at Time of Discharge Diagnosis at Time of Discharge Acute sepsis Pyelonephritis Hyponatremia Acute hydronephrosis status post right ureter stent and lithotripsy 09/14/2016 Functional quadriplegia secondary to multiple sclerosis Drug dependence Depression chronic Procedures XRay, CTs & MRIs CT abdominal pelvis with contrast 09/12/2016 1408 Impression: #1 mild to moderate hydronephrosis of the right kidney secondary to a distal ureter stone 44 mm in transverse dimension and a right trigone stone 10 mm in length and 3-4 mm in dimension. #2 in the right kidney there are numerous for a 5 mm (4-5mm) stones throughout the kidney with nonobstructing. Left kidney is normal in appearance. #3 small right pleural effusion with question of minimal infiltrate at the right lung base. #4 small to moderate sized hiatal hernia. Lobo catheter into the bladder. Dictated by Roberth Anaya M.D. on 09/12 2016 at 2:05 PM. Portable chest x-ray 1 view taken 09/12/2016 11:24 AM Impression Subsegmental atelectasis is present. This is at the right lung base. Lungs are otherwise clear. Dictated by Roberth Anaya M.D. on 09/12/2016 11:[address] without contrast 09/12/2016, 10:53AM Impression There is no acute intracranial abnormality found. Mild atrophic changes are present. dictated by Roberth Anaya M.D. on 09/12/2016 at 10:53 AM Invasive Procedures DATE OF SURGERY: 09/14/2016 SURGEON: Guy Lee MD PREOPERATIVE DIAGNOSIS(ES): 1. Urosepsis. 2. Right renal calculi. 3. Obstructing 4.5 x 10 mm right distal ureteral calculus. 4. Neurogenic bladder. POSTOPERATIVE DIAGNOSIS(ES): 1. Urosepsis. 2. Right renal calculi. 3. Obstructing 4.5 x 10 mm right distal ureteral calculus. 4. Neurogenic bladder. OPERATION PERFORMED: 1. Cystoscopy, right ureteral stent placement. 2. Cystolitholapaxy. ANESTHESIOLOGIST: Indra Paris MD ANESTHESIA: General. FINDINGS: Urethra normal. Bladder, severe trabeculation with small capacity, indwelling suprapubic. There is an ovoid calculus lying dependently in the floor of the bladder. Orifices were in normal position bilaterally. PROCEDURE SUMMARY: The patient was positioned in supine and attempted semi lithotomy, but an approximation of such due to contractures of the lower extremities. The perineum and genitalia and vaginal vault were prepped and draped in sterile fashion. The 22-Japanese panendoscope was then passed to the lower urinary tract with the findings as described above. Next, a 0.35 Glidewire was advanced to the right ureteral orifice and advanced into the proximal collecting system under direct and fluoroscopic guidance. Next, a 6-Japanese 22-32 cm variable length stent was advanced over the Chris wire and appropriately positioned in the upper tract. NO RETRIEVAL LINE WAS LEFT ATTACHED. Next, the panendoscope was removed. The 25-Japanese sheath was then inserted and was then fitted with the handheld stone covering and lining supervisor and the above-described stone was fragmented into tiny pieces most of which were irrigated clear from the bladder. The bladder was then drained completely. The patient was then repositioned supine, awakened, transferred to the [facility], and transported to recovery in stable condition. Guy Lee MD 09/14/16 7903 Brief History Patient is a 56-year-old woman with primary progressive multiple sclerosis, suprapubic catheter, and consistently reoccurring urinary tract infection presented to [facility] after being found to be more lethargic this morning by her caregiver. Caregiver(who is also the boyfriend/DPOAE) is present and is the primary historian. He states that last night she did not complain of any pain, or discomfort, and this morning when she woke up she was not talking and was very weak, and was laying in a puddle of clear fluid, but the insertion point of the suprapubic catheter with its dry and intact. This is consistent with previous urinary tract infections requiring hospitalization and IV antibiotics. Her urologist is Dr. Stinson at [facility] neurology. In the emergency department at [facility] was also noted that she had some pain and firmness in regard to her abdomen. Per [facility] ER report, vitals on presentation 130/62, heart rate 96, respirations 19 temperature 36.6 and satting 98% on room air. White blood cell count 23.6, 93% neutrophils,, hemoglobin 11.6, platelets 359. Manual differential: 2+ anisocytosis, macrocytosis, hypochromasia, giant platelets. Sodium 140, potassium 4.5, chloride 103, bicarbonate 29, BUN 30, creatinine 1.0 , glucose 125, normal bilirubin and liver enzymes. Lactic acid was 1.6. Coagulation studies were normal. CT abdomen and pelvis: Showed mild to moderate hydronephrosis of the right kidney secondary to a distal ureter stone is 44 mm in transverse dimension. ( See diagnostic studies her full impression) Chest x-ray: "Segmental atelectasis in the right lung base." CT head without contrast showed no acute intracranial abnormality. Mild atrophic changes were noted Urine was sent for culture, urinalysis yellow, specific gravity 1.02, pH 8.5, leukocyte esterase 3+, nitrite positive, 2+ protein, 2+ blood, negative ketones , negative glucose, over 100 white blood cells per high-power field, 6-9 red blood cells, 4+ bacteria seen, few squamous epithelial cells. According to documentation blood cultures were ordered before administration of antibiotics, results pending. Hospital Course 56-year-old with multiple sclerosis, suprapubic catheter and recurrent history of UTIs requiring hospitalization and IV antibiotics found to have hydronephrosis, renal lithiasis, elevated white count, elevated heart rate consistent with sepsis secondary to urinary tract infection. Patient was transferred from [place] emergency room and patient was diagnosed to have hydronephrosis/pyelonephritis from an kidney stone. Urine cultures were taken at the transferring hospital the patient was positive for gram-positive cocci in clusters. The patient was admitted and started immediately on IV antibiotics. The patient received IV cefepime 2 g every 12 hours and IV vancomycin. The patient responded well as her leukocytosis improved from 21.6 on admission decreasing down to 5.2 upon discharge. The patient underwent a stent placement in the right ureter as well as lithotripsy and seemed to tolerate the procedure well. The patient also had moderate hypokalemia with a potassium of 2.9. Patient was given an IV dose of 40 mEq of potassium and 40 mEq by mouth potassium and her hypokalemia resolved to 3.8. This morning the patient's potassium did drop down to 3.4 however she will get a dose of IV for 40 mEq of potassium and be discharged home later today. The patient is being discharged home in stable condition patient will continue a 5 day course of Levaquin 750 mg daily. Acute sepsis, present on admission, evaluation and treatment ongoing. Patient's vital signs show tachycardia, and white count greater than 20,000, urinalysis was consistent with urinary tract infection. Most likely due to suprapubic catheter, and decreased urinary flow secondary to hydronephrosis as mentioned below. -Blood cell count improving 19.2 yesterday today 7.6 -Lactic acid decreased from 1.6-0.6 -Continue IV cefepime 2 g every 12+ IV vancomycin -Tachycardia improving patient will maintain PCC status at this time -Suprapubic catheter care via nursing -Continue IV fluids -Urology has been consulted (Dr. Lee) -Blood cultures and urine cultures pending at [facility] contact for results -Procalcitonin improving yesterday 0.95 today's 0.47 Hyponatremia (resolving) -Potassium is 2.9 yesterday today 3.8 s/p replacement -Replete potassium with 40 mEq of potassium IV 1 dose and 40 mEq of potassium by mouth 1 dose (09/14/16) - Repeat CMP in the morning Acute hydronephrosis, present on admission, treatment ongoing -44 mm diameter stone was appreciated on CAT scan, this along with multiple other stones most likely cause for hydronephrosis. -Continue with outpatient Flomax, IV fluid. -Nursing has spoke with nursing staff for Dr. Lee to be seen in patient for stenting/lithotripsy necessity. Chronic multiple sclerosis, present on admission, treatment continued -Primary progressive subtype, on numerous medications -We will continue home medications at this time Chronic depression, present on admission, treatment continued -Continue home medications: Effexor, Wellbutrin, Cymbalta. Functional quadriplegia -Chronic at baseline secondary to multiple sclerosis VTE prophylaxis with SCDs GI prophylaxis not indicated Pain management: Continue with outpatient Percocet. Patient's DPOAE/boyfriend/sampling expert states patient is full code, will bring living will in the morning. Disposition: Patient is currently responding well to antibiotic therapy. After the lithotripsy the patient states that she feels much better. The patient may be ready for discharge home tomorrow. We will discuss with urology as patient seems to be medically stable. Exam Vital Signs (Last) Date Time Temp Pulse Resp B/P Pulse Ox O2 Delivery O2 Flow Rate FiO2 09/16/16 10:45 36.6 99 16 130/74 100 Room Air 09/14/16 17:57 8 Exam Physical Exam: GEN: Patient was awake, alert, responding appropriately to questions HEENT: PERRLA, EOMI, Neck soft supple, trachea midline, nomocephalic/atraumatic CV: +S1/S2, RRR, no murmur auscultated Respiratory: CTAB, no wheezes, rales, rhonchi GI: +bowel sounds x4, soft, compressible, non TTP EXT: no c/c/e, bilateral contractures in the upper and lower extremities Neuro: CN II-XII grossly intact Psych: mood and affect were appropriate Test 09/14/16 09:20 09/15/16 09:58 09/16/16 05:03 Neutrophils (%) (Auto) 78.8% (40-74) Lymphocytes (%) (Auto) 10.1% (14-46) Monocytes (%) (Auto) 9.1% (4-12) Eosinophils (%) (Auto) 1.8% (0-5) Basophils (%) (Auto) 0.1% (0-3) Lactic Acid Level 0.9mmol/L (0.4-2.0) Total Bilirubin 0.2mg/dL (0.0-1.2) Aspartate Amino Transf (AST/SGOT) 17U/L (0-50) Alanine Aminotransferase (ALT/SGPT) 15U/L (0-32) Alkaline Phosphatase 92U/L (25-150) Total Protein 6.7g/dL (6.4-8.4) Albumin 3.6g/dL (3.4-5.0) Procalcitonin 0.31ng/mL (0.00-0.08) White Blood Count 5.2th/mm3 (3.8-10.1) Red Blood Count 3.81mil/mm3 (3.90-5.20) Hemoglobin 9.5g/dL (12.0-15.6) Hematocrit 32.6% (35.0-46.0) Mean Corpuscular Volume 85.6fL (81-100) Mean Corpuscular Hemoglobin 24.9pg (27.0-35.0) Mean Corpuscular Hemoglobin Concent 29.1% (32.0-37.0) Red Cell Distribution Width 27.6% (12.3-15.4) Platelet Count 332bil/L (150-400) Sodium Level 141mEq/L (134-144) Potassium Level 3.4mEq/L (3.5-5.2) Chloride Level 105mEq/L (97-108) Carbon Dioxide Level 21mmol/L (18-29) Blood Urea Nitrogen 9mg/dL (6-24) Creatinine 0.34mg/dL (0.57-1.00) Estimat Glomerular Filtration Rate 283mL/min (>59) Glucose Level 93mg/dL (60-99) Calcium Level 8.8mg/dL (8.5-10.1) Vancomycin Level Trough 11.6mcg/mL Microbiology Results Urine and blood cultures taken at [facility], results pending Discharge Medications Discharge Medications Baclofen (Baclofen) 20 Mg Tablet 40 MG PO QAM (Reported) Baclofen (Baclofen) 20 Mg Tablet 20 MG PO DAILYWL (Reported) Baclofen (Baclofen) 20 Mg Tablet 40 MG PO HS (Reported) Bupropion ER (Bupropion ER) 150 Mg Tablet.er 150 MG PO BID (Reported) Cholecalciferol (Vitamin D3) (Vitamin D3) 5,000 Unit Capsule 5,000 UNITS PO DAILY (Reported) Cranberry Conc/C/Bacill Coag (Cranberry Tablet) 1 Each Tablet 1 EACH PO BID ( Reported) Docusate Sodium (Docusate Sodium) 250 Mg Capsule 250 MG PO BID (Reported) Ferrous Sulfate (Ferrous Sulfate) 325 Mg Tablet 325 MG PO TID (Reported) Levofloxacin (Levofloxacin) 750 Mg Tablet 750 MG PO DAILY Prescribed by: ASHLEY VILLAFANA DO Omeprazole (Omeprazole) 20 Mg Capsule.dr 20 MG PO DAILY (Reported) Venlafaxine (Venlafaxine) 75 Mg Tablet 150 MG PO QAM (Reported) Venlafaxine (Venlafaxine) 75 Mg Tablet 75 MG PO HS (Reported) As needed ([marijuana]) Unknown Dose INHALATION DAILY PRN PRN For Pain (Reported) Ibuprofen (Ibuprofen) 600 Mg Tablet 600 MG PO DAILY PRN PRN For Pain (Reported) Methylphenidate (Methylphenidate) 20 Mg Tablet 20 MG PO TID PRN PRN prn ( Reported) Sennosides (Senna) 8.6 Mg Tablet 8.6 MG PO TID PRN PRN For Constipation ( Reported) oxyCODONE-Acetaminophen 7.5-325 mg (oxyCODONE-Acetaminophen 7.5-325 mg) 1 Each Tablet 1 TAB PO q4-6hours PRN PRN For Pain (Reported) Followup Plan Discharge Diet: No restrictions, Other (soft mechanical) Discharge Activity: No restrictions (gradually return to normal daily activities) Follow-up Provider: Guy Lee MD Follow-up with PCP in: 1 week (if an appointment has already been made please call to schedule an appointment) Provider: Dyan Gifford PA-C Follow-up in: 2 weeks (if an appointment has already been made please call to schedule an appointment) Time spent 40 minutes copies to: Guy Lee MD; Dyan Gifford PA-C, Precious L DO Sep 16, 2016 12:00
[2016-09-16] MEDS ORDERED: LEVO750T39 PO (12:39)
--- NOTE | 2016-09-16 18:48 | NUR ---
Discharge Pt dc'd home at 1840. IV x2 removed intact. Reviewed d/c instructions w/ patient and her spouse. Answered all questions. Pt left w/ hard copy of RX, all belongings, and was placed in her personal wheel chair via sukhjinder lift.
[2016-10-05] MEDS ORDERED: SENN-133 PO (12:48)
[2016-10-05] MEDS ORDERED: BACL20TA PO (12:48)
[2016-10-05] MEDS ORDERED: FERR325T39 PO (12:48)
[2016-10-05] MEDS ORDERED: FLUC100T4 PO (12:48)
[2016-10-05] MEDS ORDERED: CHOL500011 PO (12:48)
[2016-10-05] MEDS ORDERED: NAPR500T5 PO (12:48)
[2016-10-05] MEDS ORDERED: DOCU250C2 PO (12:48)
[2016-10-05] MEDS ORDERED: OXYC-465 PO (12:48)
[2016-10-05] MEDS ORDERED: VENL75TA3 PO (12:48)
[2016-10-05] MEDS ORDERED: OMEP20CA11 PO (12:48)
[2016-10-05] MEDS ORDERED: BUPR150T12 PO (12:48)
== END 2016-09-16 18:45 | disposition home health service (06) | DRG 659 ==
LOC: OSC 18:08
PROVIDERS: ADMIT Internal Medicine; ATTEND Neuromusculoskeletal Medicine & OMM
PROC: 0T9680Z Drainage of Right Ureter with Drainage Device, Via Natural or Artificial Opening Endoscopic (ICD-10-PCS; 2016-09-14)
PROC: 0T768DZ Dilation of Right Ureter with Intraluminal Device, Via Natural or Artificial Opening Endoscopic (ICD-10-PCS; 2016-09-14)
PROC: 0TC08ZZ Extirpation of Matter from Right Kidney, Via Natural or Artificial Opening Endoscopic (ICD-10-PCS; principal; 2016-09-14 16:00)
DX: T83.511A Infection and inflammatory reaction due to indwelling urethral catheter, initial encounter (principal); A41.9 Sepsis, unspecified organism; R53.2 Functional quadriplegia; N13.6 Pyonephrosis; N13.2 Hydronephrosis with renal and ureteral calculous obstruction; G35 Multiple sclerosis; Z79.52 Long term (current) use of systemic steroids; Z87.891 Personal history of nicotine dependence; F32.9 Major depressive disorder, single episode, unspecified

== ENCOUNTER 2016-09-18 18:29 | Emergency (ER) | payer MEDICARE, MEDICAID ==
[~2016-09-18] VITALS: Ht 10.2 cm; Wt 52.5 kg
[~2016-09-18 18:29] MED LIST changes: -ASCO500C6 PO; -CEPH500T PO; +CRAN1TAB5 PO; -DIME240C2 PO; +DOCU250C2 PO; +FERR-83 PO; -FLUC150T48 PO; -FLUT16SP NASAL; -GABA-502 PO; +IBUP-1827 PO; -LEVO500T16 PO; +LEVO750T39 PO; +METH20TA33 PO; -METH20TA35 PO; -NAPR550T44 PO; +SENN-133 PO; -SENN8.6C6 PO; +VENL75TA3 PO; -VENL75TA87 PO; -Vitamin A PO
[2016-09-18 18:33] VITALS: BP 109/69; PULSE 89; RESP 16; O2SAT 99
--- NOTE | 2016-09-18 20:04 | ED.REPORT ---
HPI- Female Date of Service Sep 18, 2016 ED Provider: Maricel Ford MD A 56 year old female with a history of primary progressive MS, suprapubic catheter, and recurrent UTI presents to the ED due to a catheter issues. The pt was admitted last week for removal of an infected 4 mm x 10 mm kidney stone and was discharged two days ago. She was on a five day course of antibiotics that ended at discharge. Since this point, the pt has been having trouble with catheter output. The pt's partner unsuccessfully attempted to flush the catheter , after which a home care nurse was called in. The nurse replaced the catheter, but there was still no significant urinary output. The pt has no sensation and so is not experiencing any pain. During recheck, the pt's partner states that he has not been giving the pt fluids per the instructions of a nurse. Nursing Notes Stated Complaint: BLOCKED CATH Chief Complaint: General Complaint Nursing Notes Reviewed: Yes Allergies: Coded Allergies: No Known Allergies (Verified Allergy, Unknown, 09/18/16) Scheduled Baclofen (Baclofen) 20 Mg Tablet 40 MG PO QAM Baclofen (Baclofen) 20 Mg Tablet 20 MG PO DAILYWL Baclofen (Baclofen) 20 Mg Tablet 40 MG PO HS Bupropion ER (Bupropion ER) 150 Mg Tablet.er 150 MG PO BID Cephalexin (Keflex) 500 Mg Capsule 500 MG PO QID Cholecalciferol (Vitamin D3) (Vitamin D3) 5,000 Unit Capsule 5,000 UNITS PO DAILY Cranberry Conc/C/Bacill Coag (Cranberry Tablet) 1 Each Tablet 1 EACH PO BID Docusate Sodium (Docusate Sodium) 250 Mg Capsule 250 MG PO BID Ferrous Sulfate (Ferrous Sulfate) 325 Mg Tablet 325 MG PO TID Levofloxacin (Levofloxacin) 750 Mg Tablet 750 MG PO DAILY Omeprazole (Omeprazole) 20 Mg Capsule.dr 20 MG PO DAILY Venlafaxine (Venlafaxine) 75 Mg Tablet 150 MG PO QAM Venlafaxine (Venlafaxine) 75 Mg Tablet 75 MG PO HS Scheduled PRN ([marijuana]) Unknown Dose INHALATION DAILY PRN PRN For Pain Ibuprofen (Ibuprofen) 600 Mg Tablet 600 MG PO DAILY PRN PRN For Pain Methylphenidate (Methylphenidate) 20 Mg Tablet 20 MG PO TID PRN PRN prn Sennosides (Senna) 8.6 Mg Tablet 8.6 MG PO TID PRN PRN For Constipation oxyCODONE-Acetaminophen 7.5-325 mg (oxyCODONE-Acetaminophen 7.5-325 mg) 1 Each Tablet 1 TAB PO q4-6hours PRN PRN For Pain General Time Seen by MD: 20:03 Chief Complaint Other (Catheter issue) Hx Obtained From: Patient, Spouse Arrived By: Wheelchair Sudden in Onset?: No Onset Occurred: 2 days ago Symptom Duration: Since onset Recent Healthcare: Recent doctor visit, Recent hospitalization Similar Sx Previous: No Past Medical History Past Medical History Notes: Urologist Dr. Lee Past Medical History Primary progressive MS, followed by [facility] and locally by Dr. 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 Physical Exam Initial Vital Signs Vital Signs (First) Date Time Temp Pulse Resp B/P Pulse Ox O2 Delivery O2 Flow Rate FiO2 09/18/16 18:33 36.4 89 16 109/69 99 Room Air Initial VS: Reviewed Female Genitourinary: Exam deferred General/Constitutional: Awake, Alert chronically ill appearing contracted Respiratory / Chest: Atraumatic, Breath sounds NL, Breath sounds = bilat, No respiratory distress Cardiovascular: Heart rate NL, Regular rhythm, Heart sounds NL Abdomen: Atraumatic palpable suprapubic mass extending above umbilicus suprapubic catheter with no surrounding swelling or erythema no feeling to unable to know whether pt is tender Back: Atraumatic Skin: Color NL, No rash, Warm, Dry Head / Eyes: Atraumatic, Normocephalic, PERRL, EOMI ENT: Atraumatic, Airway patent, Mucous membranes moist Neck: Atraumatic Upper Extremity / MS: Atraumatic Lower Extremity / Pelvis / MS: Atraumatic Neurologic: Oriented X3 Psychiatric: Affect NL, Mood NL Interpretation & Diagnostics Lab Results Interpretation Result Diagram: 09/18/16212309/18/162123 Test 09/18/16 21:12 09/18/16 21:24 Urine Color Yellow (YELLOW) Urine Appearance Slightly cloudy Urine pH 6.0 (5.0-8.0) Urine Specific [place] 1.030 (1.003-1.035) Urine Protein 100mg/dL (NEG,TRACE) Urine Glucose (UA) Negativemg/dL (NEGATIVE) Urine Ketones Negativemg/dL (NEGATIVE) Urine Occult Blood Large (NEGATIVE) Urine Nitrite Negative (NEGATIVE) Urine Bilirubin Negative (NEGATIVE) Urine Urobilinogen Normalmg/dL (NORMAL) Urine Leukocyte Esterase Trace (NEGATIVE) Urine RBC >50/hpf (0-2) Urine WBC 11-50/hpf (0-5) Urine Epithelial Cells Few/hpf (NONE-MOD) Urine Crystals Amorphous urates (NONE Urine Bacteria Moderate/hpf (NONE-FEW) Urine Hyaline Casts None/lpf (NONE) Urine Granular Casts None seen (NONE SEEN) Urine Waxy Casts None seen (NONE SEEN) Urine Red Blood Cell Casts None seen (NONE SEEN) Urine White Blood Cell Casts None seen (NONE SEEN) Urine Mucus Present (None Seen) Urine Trichomonas None seen (NONE SEEN) Urine Yeast None (NONE SEEN) Urinalysis Comment None Urine Culture Reflexed Indicated White Blood Count 5.7th/mm3 (3.8-10.1) Red Blood Count 4.09mil/mm3 (3.90-5.20) Hemoglobin 10.5g/dL (12.0-15.6) Hematocrit 35.4% (35.0-46.0) Mean Corpuscular Volume 86.6fL (81-100) Mean Corpuscular Hemoglobin 25.7pg (27.0-35.0) Mean Corpuscular Hemoglobin Concent 29.7% (32.0-37.0) Red Cell Distribution Width 27.2% (12.3-15.4) Platelet Count 531bil/L (150-400) Neutrophils (%) (Auto) 47.6% (40-74) Lymphocytes (%) (Auto) 32.2% (14-46) Monocytes (%) (Auto) 15.8% (4-12) Eosinophils (%) (Auto) 3.5% (0-5) Basophils (%) (Auto) 0.5% (0-3) Hematology Comments Sodium Level 139mEq/L (134-144) Potassium Level 3.6mEq/L (3.5-5.2) Chloride Level 100mEq/L (97-108) Carbon Dioxide Level 23mmol/L (18-29) Blood Urea Nitrogen 15mg/dL (6-24) Creatinine 0.45mg/dL (0.57-1.00) Estimat Glomerular Filtration Rate 205mL/min (>59) Glucose Level 105mg/dL (60-99) Calcium Level 9.1mg/dL (8.5-10.1) Total Bilirubin 0.2mg/dL (0.0-1.2) Aspartate Amino Transf (AST/SGOT) 12U/L (0-50) Alanine Aminotransferase (ALT/SGPT) 11U/L (0-32) Alkaline Phosphatase 68U/L (25-150) Total Protein 7.0g/dL (6.4-8.4) Albumin 3.5g/dL (3.4-5.0) Hold Herrera Top Tube Received (Received) CT Abd / Pelvis Interpretation CONCLUSION: Tiny bilateral pleural effusions with some dependent atelectasis/infiltrate the right lung base. Suspected cholelithiasis. Right nephrolithiasis without evidence of hydronephrosis. There is a double pigtail right ureteral stent in place. There is a suprapubic Lobo catheter in the bladder which is decompressed. Interpretation / Wet Read by: Interpret - Radiologist Re-Eval/Medical Decision Med Decision/Clinical Course 56-year-old female with past medical history of MS status post recent discharge from the hospital for sepsis secondary to urinary tract infection from kidney stone here with decreased urine output. Differential diagnosis includes but is not limited to blocked suprapubic catheter versus urinary retention versus dehydration versus electrolyte abnormality. CT scan does not show any evidence of urinary retention, though I was very concerned as patient's abdomen is relatively firm. It turns out, this is patient's baseline. Her partner was not giving her water, as he thought he was not supposed to be hydrating her after the stone. She does not appear dehydrated at this time, and her labs do not show any evidence of dehydration, though she does have evidence of UTI. I have given her Keflex to go home on, given her liter of fluids, and she started producing urine and her suprapubic catheter. CT abdomen and pelvis with otherwise unremarkable for acute abnormality, though she does have gallstones and kidney stones. They are nonobstructive. They are aware and amenable to discharge and patient's partner will continue to hydrate her at home. Source of Hx: Old records, Family Re-Evaluation/Progress : Time of Eval: 00:10 Patient Status: Condition improved Re-Evaluation/Progress Note: Pt rechecked, who is feeling better and producing urine. Additional history is obtained. Pt's partner is encouraged to give pt lots of fluids. The plan for discharge was discussed. The pt understands and agrees with the plan. All questions were addressed at this time. Consultation #1: Referral / Consult Name: Guy Lee MD Consulted With: Urology Call Returned at: 20:45 Note: Spoke with Dr. Lee, urologist, regarding pt's case. Dr. Lee believes that the pt is anuric and recommends workup. Consultation #2: Referral / Consult Name: Guy Lee MD Consulted With: Urology Call Returned at: 23:25 Note: Consulted with Dr. Lee regarding pt's case. Dr. Lee is updated on the situation and recommends imaging studies. Counseled Regarding: Diagnosis, Lab results, Need for follow-up, When/why to return to ED Discharge & Departure Impression: Primary Impression: Dehydration Additional Impression: Urinary tract infection Disposition: Home Discharge Condition All VS Reviewed: Yes Condition: Stable Patient Instructions: Dehydration (ED) Additional Instructions: Thank you for entrusting us with your care. Take Keflex as prescribed. Drink plenty of fluids and stay hydrated. Follow up with your primary care physician and urologist for further evaluation. Return to the emergency department if you develop any new or worsening symptoms. Your blood pressure in the emergency department today was elevated (138/85). Be sure to follow up with your primary care physician to have this rechecked because you may need to be started on blood pressure medications. Referrals: Dyan Gifford PA-C (PCP) Guy Lee MD Scribe Attestation Portions of this note were transcribed by Star Bacon. I, Dr. Ford personally performed the history, physical exam and medical decision-making; I reviewed and confirmed the accuracy of the information in the transcribed note. Signed by: Anahy Marroquin 09/19/2016 and 0119. copies to: Guy Lee MD; Dyan Gifford PA-C, Rebecca A MD Sep 18, 2016 20:04 STAR BACON Sep 18, 2016 20:24
[2016-09-18 21:16] VITALS: BP 109/69; PULSE 89; RESP 16; O2SAT 99
[2016-09-18 21:43] LABS: BASOPHILS % (AUTO) 0.5 % (0-3); EOSINOPHILS % (AUTO) 3.5 % (0-5); MONOCYTES % (AUTO) 15.8 % (4-12); Mean Corpuscular Hemoglobin 25.7 pg (27.0-35.0); Mean Corpuscular Volume 86.6 fL (81-100); NEUTROPHILS % (AUTO) 47.6 % (40-74); Platelet Count 531 bil/L (150-400)
[2016-09-18 22:26] LABS: APPEARANCE,URINE SLIGHTLY CLOUDY (CLEAR,HAZY); COLOR,URINE YELLOW (YELLOW)
[2016-09-18 22:27] LABS: OCCULT BLOOD,URINE LARGE (NEGATIVE); UROBILINOGEN,URINE NORMAL (NORMAL)
[2016-09-18] MEDS ORDERED: HYDROmorphone 0.5 mg/0.5 mL iSecure Syringe IVPUSH ONE (22:30)
[2016-09-18] MEDS ORDERED: 0.9% Sodium Chloride 1,000 ML IV ONE (22:32)
[2016-09-18 22:34] VITALS: BP 131/89; PULSE 89; RESP 18; O2SAT 97
[2016-09-18] MEDS ORDERED: oxyCODONE ER 10 mg ER12 Tablet PO ONE (22:35)
[2016-09-19] MEDS ORDERED: CEPH-512 PO (00:24)
[2016-09-19 01:00] VITALS: BP 117/70; PULSE 88; RESP 16; O2SAT 88
--- NOTE | 2016-09-19 10:02 | DRSVH ---
PROCEDURE: CT KUB ([id number]) INDICATIONS: urinary retention TECHNIQUE: Noncontrast 5 mm thick sections acquired from the diaphragms to the symphysis. 5 mm thick coronal an d sagittal reformats were then performed. For radiation dose reduction, the following was used: aut omated exposure control, adjustment of mA and/or kV according to patient size. COMPARISON: [facility], CT, CT ABDOMEN PELVIS W CONTRAST, 09/12/2016, 12:23 PM. FINDINGS: Image quality: Excellent. Lung bases: Consolidation noted in the right lung base. Trace bilateral pleural fluid collections not ed. Heart size is normal. Urinary system: Both kidneys are normal in size. Multiple right renal stones are noted which are no t significantly changed compared to prior CT scan obtained 09/12/16. Right sided ureteral stent is in place interval since the prior examination with subsequent resolution of right-sided hydronephrosis. The distal right ureteral stone identified a prior examination is not seen on the current study. Urin boni bladder is completely decompressed by presence of a suprapubic catheter. Other solid organs: Liver and spleen are normal in size. Gallbladder a gallstone.. Pancreas is nor mal in contours. No adrenal nodules. Peritoneum and bowel: Moderate-sized hiatal hernia is noted. Unenhanced bowel loops demonstrate pina l wall caliber. The amount of stool is noted in the colon. Wall thickening noted along the posterior margin of the rectum. No free fluid or air. Nodes and vessels: No retroperitoneal or mesenteric adenopathy by size criteria. Aorta and inferior vena cava are normal in caliber. Abdominal wall: No ventral hernias. Pelvis: No free pelvic fluid. No inguinal hernias or adenopathy. Bones: No suspicious bony lesions. No vertebral body compression fractures. Spine degenerative dise ase and facet arthropathy. Convex left thoracolumbar spine scoliosis noted. IMPRESSION: 1. Numerous nonobstructing right renal stones. 2. Status post placement of left ureteral stent. 3. No hydronephrosis. 4. Probable large gallstone. 5. Trace bilateral pleural effusions. Consolidation noted in the right lung base which represent atel ectasis or pneumonia/aspiration. 6. Moderate fecal loading throughout the colon. 7. Posterior rectal wall thickening. Neoplastic process cannot be excluded. Recommend either colonosc opy or barium enema when clinically feasible. Dictated by: Aurora Turner MD, PhD on 09/19/2016 at 9:46 Approved by: Aurora Turner MD, PhD on 09/19/2016 at 10:01
[2016-10-05] MEDS ORDERED: OMEP20CA11 PO (12:48)
[2016-10-05] MEDS ORDERED: SENN-133 PO (12:48)
[2016-10-05] MEDS ORDERED: BUPR150T12 PO (12:48)
[2016-10-05] MEDS ORDERED: BACL20TA PO (12:48)
[2016-10-05] MEDS ORDERED: CHOL500011 PO (12:48)
[2016-10-05] MEDS ORDERED: FLUC100T4 PO (12:48)
[2016-10-05] MEDS ORDERED: VENL75TA3 PO (12:48)
[2016-10-05] MEDS ORDERED: OXYC-465 PO (12:48)
[2016-10-05] MEDS ORDERED: DOCU250C2 PO (12:48)
[2016-10-05] MEDS ORDERED: NAPR500T5 PO (12:48)
[2016-10-05] MEDS ORDERED: FERR325T39 PO (12:48)
== END 2016-09-19 01:00 | disposition home or self-care (01) ==
LOC: SED 18:39
DX: E86.0 Dehydration (principal); N39.0 Urinary tract infection, site not specified; N20.0 Calculus of kidney; G35 Multiple sclerosis; I10 Essential (primary) hypertension; Z96.0 Presence of urogenital implants; Z87.440 Personal history of urinary (tract) infections; Z87.891 Personal history of nicotine dependence
CPT/HCPCS: 36415; 51702; 74176; 80053; 81000; 85025; 87086; 96361; 96374; 99285; J1170; J7030

== ENCOUNTER 2016-10-06 11:37 | Day surgery (SDC) | payer MEDICARE, MEDICAID ==
[2016-10-06] VITALS (10 sets, daily range): BP systolic 152–162; BP diastolic 76–86; PULSE 66–83; RESP 7–18; O2SAT 97–100
[~2016-10-06] VITALS: Ht 165.1 cm; Wt 71.2 kg
[~2016-10-06 11:37] MED LIST changes: +Acetaminophen IV 1,000 mg IV ONE; -CHOL5000 PO; +CHOL500011 PO; -CRAN1TAB5 PO; -FERR-83 PO; +FERR325T39 PO; +FLUC100T4 PO; -IBUP-1827 PO; -LEVO750T39 PO; +Lactated Ringer's 1,000 ML IV SCH; -METH20TA33 PO; +NAPR500T5 PO; -marijuana INHALATION
[2016-10-06] MEDS ORDERED: Propofol 10,000 mCg/mL 20 mL Inj ONE (11:38)
[2016-10-06] MEDS ORDERED: Dexamethasone 4 mg/mL Inj ONE (11:38)
[2016-10-06] MEDS ORDERED: Ondansetron 2 mg/mL 2 mL Inj ONE (11:38)
[2016-10-06] MEDS ORDERED: Lidocaine PF 1% 30 mL Inj ONE (11:38)
[2016-10-06] MEDS ORDERED: fentaNYL-PF 50 mCg/mL 2 mL Inj ONE (11:38)
[2016-10-06] MEDS ORDERED: Lactated Ringer's 1,000 ML IV ONE (12:33)
--- NOTE | 2016-10-06 13:38 | DRSVH ---
PROCEDURE: X-RAY KUB ([id number]) INDICATIONS: KIDNEY STONE TECHNIQUE: One view of the abdomen acquired. COMPARISON: [facility], CT, CT KUB, 09/18/2016, 23:49. FINDINGS: Surgical changes and devices: Double pigtail right ureteral catheter has its upper and lower tips wit hin expected position. Within the collecting system of the right kidney, partially obscured by overl tia the patient hand, there are calcifications both at the superior and especially through the mid a nd lower thirds of the collecting system and a staghorn calculus configuration inferiorly. Bowel: Bowel gas pattern is normal. Soft tissues: No suspicious abdominal calcifications. Visualized solid organ contours appear normal in size. Bones: No suspicious bony lesions. IMPRESSION: Stable appearance of a double pigtail right ureteral stent, staghorn calculus over the mi ddle and lower thirds of the collecting system of the right kidney, several additional small calculi appear present at the upper third collecting system of the right kidney. No definite left-sided urin boni tract stones seen. Dictated by: Raoul Ngo M.D. on 10/06/2016 at 13:35 Approved by: Raoul Ngo M.D. on 10/06/2016 at 13:37
--- NOTE | 2016-10-06 13:44 | PCM.HPANE ---
Patient Data Date of Service: Oct 06, 2016 Surgeon Admitting Provider: Attending Provider:Guy Lee MD Primary Care Physician:Dyan Gifford PA-C Other Provider:Robbi Yang Anesthesia Reason for Visit Right Kidney Stone Ht/WT & BMI Height (Feet): 5 Height (Inches): 5 Weight (Kilograms): 71.21 Body Mass Index 26.00 Allergies Coded Allergies: No Known Allergies (Verified Allergy, Unknown, 09/18/16) Past Anesthesia History Anesthesia History: Denies:: Anesthesia Reactions, Malignant Hyperthermia Diabetes History Hx Diabetes?: No MRSA MRSA: No Medications Hypertension Medication: No Home Meds Incl Beta Nallely: No Reported Medications Cholecalciferol (Vitamin D3) (Vitamin D3)5,000 Unit Tablet5,000 Unit PO DAILY 10/05/16 Venlafaxine 75 Mg Fklddf395 Mg PO DAILY Ref 0 10/05/16 Sennosides (Senna)8.6 Mg Tablet8.6 Mg PO BID PRN For Constipation 10/05/16 oxyCODONE-Acetaminophen 7.5-325 mg 1 Each Tablet1 Tab PO Q4H PRN For Pain Ref 0 10/05/16 Omeprazole 20 Mg Capsule.dr20 Mg PO DAILY Ref 0 10/05/16 Naproxen 500 Mg Tablet.dr500 Mg PO BID PRN For Pain Ref 0 10/05/16 Ferrous Sulfate (Iron)325 Mg Mwziwn336 Mg PO DAILY 10/05/16 Fluconazole 100 Mg Pjsqak666 Mg PO DAILY Ref 0 10/05/16 Docusate Sodium 250 Mg Ewhhsdf962 Mg PO BID PRN For Constipation Ref 0 10/05/16 Bupropion ER 150 Mg Tablet.er150 Mg PO BID Ref 0 10/05/16 Baclofen 20 Mg Nkjfdc17 Mg PO DAILY Ref 0 20mg afternoon 10/05/16 Baclofen 20 Mg Jcouxl18 Mg PO BID Ref 0 40mg am/ pm 10/05/16 Discontinued Reported Medications Sennosides (Senna)8.6 Mg Tablet8.6 Mg PO TID PRN For Constipation 09/12/16 Cranberry Conc/C/Bacill Coag (Cranberry Tablet)1 Each Tablet1 Each PO BID 09/12/16 Ibuprofen 600 Mg Kqsofh665 Mg PO DAILY PRN For Pain Ref 0 09/12/16 Venlafaxine 75 Mg Twmoic09 Mg PO HS Ref 0 09/12/16 Venlafaxine 75 Mg Vqjcnt234 Mg PO QAM #90 09/12/16 Methylphenidate 20 Mg Ueeavo94 Mg PO TID PRN prn #90 09/12/16 Ferrous Sulfate 325 Mg Uklcgy985 Mg PO TID #90 09/12/16 Docusate Sodium 250 Mg Zrdzeaf321 Mg PO BID Ref 0 09/12/16 Baclofen 20 Mg Bjzyrj42 Mg PO HS Ref 0 09/12/16 Baclofen 20 Mg Vfhflx82 Mg PO DAILYWL Ref 0 09/12/16 Cholecalciferol (Vitamin D3) (Vitamin D3)5,000 Unit Capsule5,000 Units PO DAILY #90 08/18/15 oxyCODONE-Acetaminophen 7.5-325 mg 1 Each Tablet1 Tab PO q4-6hours PRN For Pain Ref 0 08/18/15 Omeprazole 20 Mg Capsule.dr20 Mg PO DAILY #15 08/18/15 Bupropion ER 150 Mg Tablet.er150 Mg PO BID #30 08/18/15 [marijuana] No Conflict CheckUnknown Dose INHALATION DAILY PRN For Pain 08/18/15 Baclofen 20 Mg Lxxbjt91 Mg PO QAM 30 Days Ref 0 01/13/14 Discontinued Scripts Cephalexin (Keflex)500 Mg Acitaxi075 Mg PO QID #40 CAPSULE Ref 0 Prov:Maricle Ford MD 09/19/16 Levofloxacin 750 Mg Ridnha262 Mg PO DAILY #5 TABLET Prov:Ashley Villafana DO 09/16/16 History History of ENT Problems?: No HEENT History: Positive for:: Cataracts Hx of Heart Problems?: No Cardiovascular History: Denies:: Congestive Heart Failure Hypertension Hx of Respiratory Problem?: No Respiratory History: Denies:: Asthma Pneumonia Tuberculosis Use of C-PAP Machine Use of Inhalers / NEBS Hx Neurologic Problems?: Yes Neurological History: Positive for:: Multiple Sclerosis (worsening MS- unable to ambulate) Hx of GI Problems?: Yes Gastrointestinal History: Positive for:: Gastroesphageal Reflux Heartburn Other GI Pertinent History: pt had rectal mass identified on CT during recent hospitalization- still being worked up Hx of Problems?: Yes Genitourinary History: Positive for:: Kidney Stones (right kidney stone current problem) Denies:: Urinary Tract Infection (hx of recurrent) Other Pertinent History: neurogenic bladder with suprapubic catheter placement Female Hx: Denies:: Currently Endometriosis Pelvic Inflammatory Problems with Breasts? Skin History: Denies:: History Skin Disorders? Pressure Ulcers Hx Musculoskeletal Problems?: Yes Musculoskeletal History: Positive for:: Back Injury (Chronic back pain / neck pain) Degenerative Joint Hx of Psycho/Social Problems?: Yes Psycho Social History: Denies:: Hx Depression (denies) Hx Surgeries?: Yes (TONSILLECTOMY, cysto with stent) Hx Any Other Health Problems?: Yes Other History: Denies:: Cancer Endocrine Disease (C/OF NIGHT SWEATS & HEAT INTOLERANCE (HOT FLASHES)) Hospitalization Thyroid Disease History Blood Transfusions: Denies:: Blood Transfuse Reaction Blood Transfusions Hx Diabetes: No Hx Alcohol Use: Yes ("very little, once a month or less")Hx Substance Use: Yes (marijuana, medical, "as much as she can") Smoking Status: Former Smoker Have You Smoked inLast 12 mo: No Stop/Bang S-Snoring: Do You Snore Loudly: Yes T-Tired: feel tired, fatigued: Yes O-Obsered: Observed not breath: No P-Blood Pressure: treated: No B- Body Mass Index > 35 kg/m2: No A- Age over 50: Yes N- Neck Large Circumference: No G- Gender Male: No ZAYRA Total Score: 3 ZAYRA Risk Assessment: High Risk, =/>3 Yes Risk Assessment Category Category 1A: Patient has history of documented sleep apnea, and HAS NOT received any narcotic, sedative or anesthesia administration during this stay. Category 1B: Patient has history of documented sleep apnea, and HAS received any narcotic , sedative or anesthesia administration during this stay Category 2: Patient has SUSPECTED Obstructive Sleep Apnea, and HAS received any narcotic , sedative or anesthesia administration during this stay. Category 3: Patient has SUSPECTED Obstructive Sleep Apnea and HAS NOT received narcotic, sedative or anesthesia administration during this stay. Category 4: Outpatient in Procedural Areas with known sleep apnea or who screen positive for High Risk via the STOP/BANG questionnaire. Exam Exam Vital Signs Vital Signs Date Time Temp Pulse Resp B/P Pulse Ox O2 Delivery O2 Flow Rate FiO2 10/06/16 12:31 36.6 78 14 154/78 98 Room Air General Appearance: Alert, Oriented X3, Cooperative, Mild Distress HEENT/AIRWAY: MP 2, Neck Movement (limited) Lungs: Normal Air Movement Heart: Exam Unremarkable Meds/Labs/Diagnostics Admission Meds Current Medications Lactated Ringer's (Lr) 1,000 ml @ ud STK-MED ONCE IV Last administered on t 12:33; Start 10/06/16 at 12:33; Stop 10/06/16 at 12:34; Status DC Plan Impression Patient chart reviewed, patient interviewed and anesthestic plan with risks, benefits, and alternatives discussed, and informed consent obtained. NPO Status: Confirmed before mn ASA Physical Status: ASA3 Severe Disease Anesthetic Plan: GA Bene/Risks/Altern/Consents: Yes HP Complete Prior to Induction: Yes Chon Green MD Oct 06, 2016 12:40
[2016-10-06] MEDS ORDERED: Lactated Ringer's 1,000 ML IV SCH (14:16)
[2016-10-06] MEDS ORDERED: Lactated Ringer's 500 ML IV PRN (14:16)
[2016-10-06] MEDS ORDERED: Ondansetron 2 mg/mL 2 mL Inj IVPUSH PRN (14:20)
[2016-10-06] MEDS ORDERED: MetoCLOpramide 5 mg/mL 2 mL Inj IVPUSH PRN (14:20)
[2016-10-06] MEDS ORDERED: fentaNYL-PF 50 mCg/mL 2 mL Inj IVPUSH PRN (14:20)
[2016-10-06] MEDS ORDERED: HYDROmorphone 1 mg/mL Inj IVPUSH PRN (14:20)
[2016-10-06] MEDS ORDERED: Labetalol 5 mg/mL 4 mL Inj IV PRN (14:20)
[2016-10-06] MEDS ORDERED: EPHEDrine Sulfate 50 mg/mL Inj IVPUSH PRN (14:20)
[2016-10-06] MEDS ORDERED: Phenylephrine 10,000 mCg/mL Inj IVPUSH PRN (14:20)
[2016-10-06] MEDS ORDERED: Atropine 0.4 mg/mL Inj IVPUSH PRN (14:20)
[2016-10-06] MEDS ORDERED: Dexamethasone 4 mg/mL Inj IVPUSH PRN (14:20)
[2016-10-06] MEDS ORDERED: oxyCODONE-Acetamin 5-325 mg Tablet PO PRN (14:55)
[2016-10-06] MEDS ORDERED: Furosemide 10 mg/mL 2 mL Inj IV ONE (14:55)
--- NOTE | 2016-10-06 14:58 | PCM.ANEP1 ---
Post Anesthesia Phase 1 PACU Phase 1 Assessment Date of Service: Oct 06, 2016 Vital Signs Vital Signs Date Time Temp Pulse Resp B/P Pulse Ox O2 Delivery O2 Flow Rate FiO2 10/06/16 14:50 36.8 66 8 152/77 99 Nasal Cannula 3 10/06/16 12:31 36.6 78 14 154/78 98 Room Air Anesthetic Administered: GA Level of Alertness: Sleepy, easy to arouse Pain: No Nausea or Vomiting: No Oxygen Delivery: Nasal Cannula Lungs: Normal Air Movement Chon Green MD Oct 06, 2016 14:58
--- NOTE | 2016-10-06 14:59 | PCM.ANEP2 ---
Post Anesthesia Evaluation ASA/CMS Post Anesthesia Date of Service: Oct 06, 2016 VS in Patient's Normal Range?: Yes Resp Stable; Airway Patent?: Yes CV Function & Hydration Stable: Yes Mental Status Recovered?: Yes Pain control Satisfactory?: Yes N/V Control Satisfactory?: Yes Chon Green MD Oct 06, 2016 14:59
[2016-10-06] MEDS ORDERED: Furosemide 10 mg/mL 2 mL Inj IVPUSH ONE (15:00)
--- NOTE | 2016-10-07 03:11 | OP ---
[address] [address] OPERATIVE REPORT PATIENT: MARTHA RAMIREZ : 1960 MR#: [id number] ADMIT: 10/06/2016 JOB ID: [id number] DATE OF SURGERY: 10/06/2016 SURGEON: Guy Lee MD PREOPERATIVE DIAGNOSIS(ES): 1. right-sided calculus. 2. History of urosepsis/pyelonephritis. 3. Indwelling right ureteral stent. POSTOPERATIVE DIAGNOSIS(ES): 1. right-sided calculus. 2. History of urosepsis/pyelonephritis. 3. Indwelling right ureteral stent. OPERATIONS PERFORMED: right extracorporeal shock wave lithotripsy (maximum power level 5.0 times 2500 shocks). ANESTHESIOLOGIST: Chon Green MD PROCEDURE SUMMARY: The patient was positioned supine on the lithotripsy gurney and the above-described stone was localized in the X, Y and Z plane. Lithotripsy was then commenced at minimal power level and gradually increased to maximum power level. The stone and its fragments were relocalized numerous times throughout the case using C-arm radiography. The procedure was then terminated. The patient was awakened, transferred to the gurney and transferred to the recovery area awake in stable condition. The patient tolerated the procedure well.
[2016-10-14 10:13] LABS: Stone Color Tan (.)
== END 2016-10-06 23:59 | disposition home or self-care (01) ==
LOC: SAS 11:37
PROVIDERS: ATTEND Specialist
DX: N20.0 Calculus of kidney (principal); G35 Multiple sclerosis; N31.9 Neuromuscular dysfunction of bladder, unspecified; G89.4 Chronic pain syndrome; K62.9 Disease of anus and rectum, unspecified; F41.9 Anxiety disorder, unspecified; F32.9 Major depressive disorder, single episode, unspecified; K21.9 Gastro-esophageal reflux disease without esophagitis; F12.90 Cannabis use, unspecified, uncomplicated; F17.210 Nicotine dependence, cigarettes, uncomplicated; Z87.440 Personal history of urinary (tract) infections; Z99.3 Dependence on wheelchair
CPT/HCPCS: 50590; 74000; 82360; J1100; J1940; J2405; J3010; J7120

== ENCOUNTER 2016-11-17 10:09 | Day surgery (SDC) | payer MEDICARE, MEDICAID ==
[~2016-11-17] VITALS: Ht 165.1 cm; Wt 71.2 kg
[2016-11-17] VITALS (8 sets, daily range): BP systolic 131–147; BP diastolic 55–71; PULSE 57–68; RESP 10–18; O2SAT 98–100
--- NOTE | 2016-11-17 07:01 | PCM.HPANE ---
Patient Data Surgeon Admitting Provider: Attending Provider:Guy Lee MD Primary Care Physician:Dyan Gifford PA-C Other Provider:Robbi Yang Anesthesia Reason for Visit Right Kidney Stone, Recurrent Uti Ht/WT & BMI Height (Feet): 5 Height (Inches): 5 Weight (Kilograms): 71.21 Body Mass Index 26.00 Allergies Coded Allergies: No Known Allergies (Verified Allergy, Unknown, 09/18/16) Past Anesthesia History Anesthesia History: Denies:: Abnormal Airway, Anesthesia Reactions, Difficult Intubation, Fam Anesthesia Reaction, Fam Malignant Hypertherm, Malignant Hyperthermia Diabetes History Hx Diabetes?: No MRSA MRSA: No Medications Hypertension Medication: No Home Meds Incl Beta Nallely: No Reported Medications Cholecalciferol (Vitamin D3) (Vitamin D3)5,000 Unit Tablet5,000 Unit PO DAILY 10/05/16 Venlafaxine 75 Mg [id number] Mg PO DAILY Ref 0 10/05/16 Sennosides (Senna)8.6 Mg Tablet8.6 Mg PO BID PRN For Constipation 10/05/16 oxyCODONE-Acetaminophen 7.5-325 mg 1 Each Tablet1 Tab PO Q4H PRN For Pain Ref 0 10/05/16 Omeprazole 20 Mg Capsule.dr20 Mg PO DAILY Ref 0 10/05/16 Naproxen 500 Mg Tablet.dr500 Mg PO BID PRN For Pain Ref 0 10/05/16 Ferrous Sulfate (Iron)325 Mg Jcpidz652 Mg PO DAILY 10/05/16 Fluconazole 100 Mg Ihwcew220 Mg PO DAILY Ref 0 10/05/16 Docusate Sodium 250 Mg Qkswril059 Mg PO BID PRN For Constipation Ref 0 10/05/16 Bupropion ER 150 Mg Tablet.er150 Mg PO BID Ref 0 10/05/16 Baclofen 20 Mg Msgpvg16 Mg PO DAILY Ref 0 20mg afternoon 10/05/16 Baclofen 20 Mg Ocdqjz72 Mg PO BID Ref 0 40mg am/ pm 10/05/16 History History of ENT Problems?: No HEENT History: Positive for:: Cataracts Denies:: Abnormal Airway Difficult Intubation Dysphagia Hearing Problem Denture Type: None Teeth Condition: Within Normal Limits Hx of Heart Problems?: No Cardiovascular History: Denies:: Congestive Heart Failure Hypertension Hx of Respiratory Problem?: No Respiratory History: Denies:: Asthma Oxygen Administration Pneumonia Tuberculosis Use of C-PAP Machine Hx Neurologic Problems?: Yes Neurological History: Positive for:: Multiple Sclerosis (worsening MS- unable to ambulate) Hx of GI Problems?: Yes Hx of Problems?: Yes Genitourinary History: Positive for:: Kidney Stones (right kidney stone current problem) Denies:: Urinary Tract Infection (hx of recurrent) Other Pertinent History: had prior eswl here october 06, pt has neurogenic bladder- suprapubic catheter in place Female Hx: Denies:: Currently Endometriosis Pelvic Inflammatory Problems with Breasts? Skin History: Denies:: History Skin Disorders? Pressure Ulcers Hx Musculoskeletal Problems?: Yes Musculoskeletal History: Positive for:: Back Injury (Chronic back pain / neck pain) Degenerative Joint Hx of Psycho/Social Problems?: Yes Psycho Social History: Denies:: Hx Depression (denies) Hx Surgeries?: Yes (tonsil, cysto with stent, suprapubic cath placement) Hx Any Other Health Problems?: Yes Other History: Denies:: Cancer Endocrine Disease Hospitalization Thyroid Disease History Blood Transfusions: Denies:: Blood Transfuse Reaction Blood Transfusions Hx Diabetes: No Hx Alcohol Use: Yes ("very little, once a month or less")Hx Substance Use: Yes (marijuana, medical, "as much as she can") Smoking Status: Former Smoker Have You Smoked inLast 12 mo: No Stop/Bang S-Snoring: Do You Snore Loudly: Yes T-Tired: feel tired, fatigued: Yes O-Obsered: Observed not breath: No P-Blood Pressure: treated: No B- Body Mass Index > 35 kg/m2: No A- Age over 50: Yes N- Neck Large Circumference: No G- Gender Male: No ZAYRA Total Score: 3 Risk Assessment Category Category 1A: Patient has history of documented sleep apnea, and HAS NOT received any narcotic, sedative or anesthesia administration during this stay. Category 1B: Patient has history of documented sleep apnea, and HAS received any narcotic , sedative or anesthesia administration during this stay Category 2: Patient has SUSPECTED Obstructive Sleep Apnea, and HAS received any narcotic , sedative or anesthesia administration during this stay. Category 3: Patient has SUSPECTED Obstructive Sleep Apnea and HAS NOT received narcotic, sedative or anesthesia administration during this stay. Category 4: Outpatient in Procedural Areas with known sleep apnea or who screen positive for High Risk via the STOP/BANG questionnaire. Exam Exam General Appearance: Alert, Oriented X3, Cooperative, Other (Disconjugate gaze) HEENT/AIRWAY: MP 2 Lungs: Clear to Auscultation Heart: Exam Unremarkable Additional Information Very soft spoken, disconjugate gaze Plan Impression Patient chart reviewed, patient interviewed and anesthestic plan with risks, benefits, and alternatives discussed, and informed consent obtained. ASA Physical Status: ASA3 Severe Disease Anesthetic Plan: GA Bene/Risks/Altern/Consents: Yes HP Complete Prior to Induction: Yes Qamar Payton MD November 17, 2016 07:01
[~2016-11-17 10:09] MED LIST changes: +Acetaminophen IV 1,000 MG in IV Premix 1 EACH IV ONE; -Acetaminophen IV 1,000 mg IV ONE; +NEOMYCIN IRRIGATION ONE; +SODIUM CHLORIDE IRRIGATION ONE; +[UNRECOGNIZED DRUG - OTHER] IRRIGATION ONE
[2016-11-17] MEDS ORDERED: Phenylephrine/NS-PF 100 mCg/mL 5 mL Syringe IVPUSH ONE (10:10)
[2016-11-17] MEDS ORDERED: Propofol 10,000 mCg/mL 20 mL Inj ONE (10:10)
[2016-11-17] MEDS ORDERED: EPHEDrine/NS 5 mg/mL 5 mL Syringe ONE (10:10)
[2016-11-17] MEDS ORDERED: Remifentanil 1 mg/3 mL Inj ONE (10:10)
[2016-11-17] MEDS ORDERED: Lactated Ringer's 1,000 ML IV ONE (11:26)
[2016-11-17] MEDS ORDERED: hydrALAZINE 20 mg/mL Inj IVPUSH PRN (11:40)
[2016-11-17] MEDS ORDERED: fentaNYL-PF 50 mCg/mL 2 mL Inj IVPUSH PRN (11:40)
[2016-11-17] MEDS ORDERED: Atropine 0.4 mg/mL Inj IVPUSH PRN (11:40)
[2016-11-17] MEDS ORDERED: Lactated Ringer's 500 ML IV PRN (11:40)
[2016-11-17] MEDS ORDERED: Ondansetron 2 mg/mL 2 mL Inj IVPUSH PRN (11:40)
[2016-11-17] MEDS ORDERED: Labetalol 5 mg/mL 4 mL Inj IV PRN (11:40)
[2016-11-17] MEDS ORDERED: Lactated Ringer's 1,000 ML IV SCH (11:40)
[2016-11-17] MEDS ORDERED: Phenylephrine 10,000 mCg/mL Inj IVPUSH PRN (11:40)
[2016-11-17] MEDS ORDERED: Dexamethasone 4 mg/mL Inj IVPUSH PRN (11:40)
[2016-11-17] MEDS ORDERED: EPHEDrine Sulfate 50 mg/mL Inj IVPUSH PRN (11:40)
[2016-11-17] MEDS ORDERED: LEVOFLOXACIN IV ONE (12:42)
[2016-11-17] MEDS ORDERED: Levofloxacin 500 mg/100 mL D5W IV ONE (12:45)
[2016-11-17] MEDS ORDERED: Furosemide 10 mg/mL 2 mL Inj ONE (13:16)
[2016-11-17] MEDS ORDERED: Furosemide 10 mg/mL 2 mL Inj IVPUSH ONE (13:20)
--- NOTE | 2016-11-17 14:16 | PCM.ANEP1 ---
Post Anesthesia PACU Phase 1 Assessment Vital Signs Vital Signs Date Time Temp Pulse Resp B/P Pulse Ox O2 Delivery O2 Flow Rate FiO2 11/17/16 14:00 66 18 99 Room Air 11/17/16 13:39 66 15 147/55 98 Room Air 11/17/16 13:30 36.6 68 15 143/71 99 Room Air 11/17/16 13:25 66 11 140/64 99 Room Air 11/17/16 13:20 67 10 138/63 99 Room Air 11/17/16 13:15 65 10 134/67 100 Room Air 11/17/16 13:10 36.8 65 10 131/58 100 Room Air 11/17/16 11:26 36.3 57 18 138/62 99 Room Air Anesthetic Administered: GA Level of Alertness: Awake, talking MENSAH's with Equal Strength: Yes Pain: No Nausea or Vomiting: No CV Function and Hydration: Yes Airway Device: NONE Oxygen Delivery: Room Air Lungs: Clear to Auscultation PACU Phase 2 Assessment Complications: No Follow up Care: No Patient Instructions Provided: N/A Qamar Payton MD November 17, 2016 14:16
--- NOTE | 2016-11-18 10:14 | OP ---
[address] [address] OPERATIVE REPORT PATIENT: MARTHA RAMIREZ : 1960 MR#: [id number] ADMIT: 11/17/2016 JOB ID: [id number] DATE OF SURGERY: 11/17/2016 PREOPERATIVE DIAGNOSIS(ES): 1. Partial right staghorn calculus. 2. Recurrent urinary tract infection/urosepsis. POSTOPERATIVE DIAGNOSIS(ES): 1. Partial right staghorn calculus. 2. Recurrent urinary tract infection/urosepsis. OPERATION PERFORMED: Second stage right extracorporeal shock wave lithotripsy with maximal power level of 4.0 x 2500 shocks. SURGEON: Guy Lee MD. ANESTHESIOLOGIST: Qamar Payton MD. ANESTHESIA: General. PROCEDURE SUMMARY: The patient was positioned supine on the lithotripsy gurney and the above-described stone was localized in the X, Y and Z planes. Lithotripsy was then commenced at minimal power level and gradually increased to maximum power level. The stone and its fragments were relocalized numerous times throughout the case using C-arm radiography. The procedure was then terminated. The patient was awakened, transferred to the gurney and transferred to the recovery area awake in stable condition. The patient tolerated the procedure well.
== END 2016-11-17 23:59 | disposition home or self-care (01) ==
LOC: SAS 10:09
PROVIDERS: ATTEND Specialist
DX: N20.0 Calculus of kidney (principal); N39.0 Urinary tract infection, site not specified; G35 Multiple sclerosis; N31.0 Uninhibited neuropathic bladder, not elsewhere classified; Z93.1 Gastrostomy status; Z96.0 Presence of urogenital implants; Z87.440 Personal history of urinary (tract) infections; Z87.891 Personal history of nicotine dependence
CPT/HCPCS: 50590; J1940; J2370; J7120